=== PATIENT | female | born 1960 | race Caucasian/White ===

== ENCOUNTER → 2017-05-05 09:46 | Outpatient (CLI) | payer MEDICAID, SELFPAY ==
--- NOTE | 2017-05-05 09:55 | XR_ITS ---
XR chest 2V HISTORY: Chest pain ORDERING PHYSICIAN: Zaki Winslow PATIENT AGE: 57 years COMPARISON: 09/21/2010 FINDINGS: The cardiomediastinal silhouette and pulmonary vascularity are within normal limits. No lobar consolidation or collapse. There is a calcified granuloma in the right lower lobe.. No acute bony abnormalities. IMPRESSION: No change with no acute finding
--- NOTE | 2017-05-05 09:55 | XR_ITS ---
EXAM: XR cervical spine 5V HISTORY: Neck pain, muscle spasm ITS.REASON: CHEST PAIN,NECK PAIN,MUSCLE SPASMS IN NECK,LT SHOULDER ORDERING PHYSICIAN: Zaki Winslow PATIENT AGE: 57 years COMPARISON: None FINDINGS: Normal alignment. Mild multilevel degenerative disc disease from C3 to C6 with small posterior endplate osteophytes at C3, C4, C5 and C6. The degenerative disc disease is worse at C5-C6. Mild foraminal narrowing is present on the left at C3-C4 and C5-C6. No fracture or dislocation. No lytic or blastic change. Facet arthritic changes are present at C4-C5 and C6. IMPRESSION: Cervical spondylosis with degenerative disc disease and facet arthritic change as described above. There is foraminal narrowing on the left C5-C6 and to lesser degree at C3-C4. There are small posterior osteophytes which may lead to canal stenosis and may be better evaluated with MRI if clinically warranted
== END ==
PROVIDERS: PCP Internal Medicine; Visit Provider Internal Medicine
DX: R07.9 Chest pain, unspecified (principal); M54.2 Cervicalgia; M62.838 Other muscle spasm
CPT/HCPCS: 71046; 72050

== ENCOUNTER 2017-05-06 14:28 | Outpatient (RCR) | payer MEDICAID, SELFPAY ==
--- NOTE | 2017-05-06 16:12 | HMH.PTOPEV ---
Rehab Outpatient Evaluation Rehab OP Evaluation Start: 05/06/17 15:59 Freq: Status: Active Protocol: Document 05/06/17 16:01 LUZMAPETTY (Rec: 05/06/17 16:12 MARIAA [id number]) Electronically Signed By Devang Matthews PT 05/06/17 16:01 Outpatient Therapy Subjective History Subjective History This is the initial Physical Therapy evaluation for Kirstie Matthews. Pt is a 57 y/o female referred to PT for c/o L sided neck and periscapular pain. Pt reports insidious onset of pain ~3 months ago. Pt reports it started out as a tightness but has progressed into pain and muscle spasms w/ secondary headaches. Pt reports she tried massage therapy and had relief for a few days but eventually pain came back worse. Pt also reports that MD prescribed muscle relaxers which help but do not relieve pain entirely. Chief Complaint Pain Spasms Stiff Symptom Type Ache Throb Sharp Stabbing Shooting Symptoms Relieved By Rest/Positioning Heat Ice Prescription Meds Symptoms Aggravated By Physical Activity Twisting Sneeze/Coughing Prior Functional Limitations None Current Functional Limitations Housework Driving Sleeping Recreation Activity Symptom Description Intermittent Activity Dependent Level of pain today (0-10) 3 Pain scale - at its best (0-10) 0 Pain scale - at its worst (0-10) 9 Cervical Eval Palpation Cervical Muscles L Cervical Paraspinal L Suboccipital L SCM L CT Junction L Upper Trapezius L Thoracic Paraspinals Cervical/Thoracic Palpation Findings Tenderness Spasm
== END 2017-05-06 14:30 | disposition home or self-care (01) ==
LOC: PT 14:28
PROVIDERS: Family Provider Internal Medicine; PCP Internal Medicine; Visit Provider Internal Medicine
DX: M54.9 Dorsalgia, unspecified (principal); M62.830 Muscle spasm of back

== ENCOUNTER 2017-05-06 17:24 | Observation (INO) | payer MEDICAID, SELFPAY ==
[2017-05-06 17:25] VITALS: BP 100/68; PULSE 100; RESP 22; TEMP 36.8; O2SAT 96; BMI 29.0
--- NOTE | 2017-05-06 17:41 | XR_ITS ---
XR chest 2V HISTORY: ITS.REASON: SOA ORDERING PHYSICIAN: Dilma Kenny MD PATIENT AGE: 57 years COMPARISON: 05/05/2017 FINDINGS: The cardiomediastinal silhouette and pulmonary vascularity are within normal limits. Calcified granuloma right lower lobe The lungs are clear without infiltrates, suspicious nodules, or pleural effusions. No acute bony abnormalities. IMPRESSION: No change with no acute finding
[2017-05-06 17:55] VITALS: PULSE 97; PULSE 98
[2017-05-06 18:24] LABS: Basophils % 0.1 % (0.1-2.0); Eosinophils # 0.1 K/mm3 (0.0-0.4); Eosinophils % 0.3 % (0.1-12.0); Hematocrit 44.5 % (37.0-47.0); Hemoglobin 14.3 g/dL (12.2-16.2); Lymphocytes % 11.3 K/mm3 (10-50); Mean Corpuscular HGB Conc 32.2 g/dL (31.8-35.4); Mean Corpuscular Hemoglobin 30.1 pg (27.0-31.2); Mean Corpuscular Volume 93.2 fl (81-99); Mean Platelet Volume 8.5 fl (7.4-10.4); Monocytes # 0.8 K/mm3 (0.1-1.0); Monocytes % 4.3 % (1.7-9.3); Neutrophils # 15.1 K/mm3 (1.8-7.8); Neutrophils % 84.1 % (37.0-80.0); Platelet Count 366 K/mm3 (142-424); Red Blood Count 4.77 M/mm3 (4.20-5.40)
[2017-05-06 18:31] LABS: MANUAL DIFFERENTIAL MANUAL DIFFERENTIAL (MANUAL DIFF)
[2017-05-06 18:34] LABS: Alanine Aminotransferase 31 U/L (12-78); Albumin Level 3.9 gm/dL (3.4-5.0); Albumin/Globulin Ratio 0.8 (1.1-1.8); Alkaline Phosphatase 105 U/L (46-116); Anion Gap 19.5 mEq/L (5-15); Aspartate Amino Transferase 19 U/L (15-37); Bilirubin,Total 0.3 mg/dL (0.2-1.0); Blood Urea Nitrogen 13 mg/dL (7-18); Carbon Dioxide 22 mmol/L (21.0-32.0); Chloride 104 mmol/L (98-107); Creatinine Clearance Estimated 73 mL/min (0-300); Creatinine,Serum 1.09 mg/dL (0.55-1.02); Estimated Glomerular Filt Rate 52 ml/min (>60); GFR (African American) 63 ML/MIN (>60); Globulin 4.8 gm/dl (1.3-3.2); Glucose 168 mg/dL (74-106); Potassium 3.5 mmoL/L (3.5-5.1); Sodium 142 mmol/L (136-145); Total Protein,Serum 8.7 gm/dL (6.4-8.2)
[2017-05-06 18:38] LABS: Lactic Acid 4.5 mmol/L (0.4-2.0)
--- NOTE | 2017-05-06 18:42 | PC.NURSE ---
LAB CALLED WITH CRITICALS [facility] OF 4.5 DR MELENDEZ NOTIFIED
--- NOTE | 2017-05-06 18:55 | HMH.EDGENADL ---
ED Disposition Clinical Impression: Acute exacerbation of chronic obstructive airways disease, Generalized anxiety disorder Asthma with exacerbation Qualifiers: Asthma severity: moderate Asthma persistence: unspecified Qualified Code(s): J45.901 - Unspecified asthma with (acute) exacerbation Disposition: Admitted as Observation Condition on Discharge: Fair Referrals: Zaki Winslow [Primary Care Provider] - Shazia Reid MD [Staff Physician] - Time of Disposition: 19:17 - Critical Care Critical Care Time: No Attestation: On 05/06/17, the high probability of a clinically significant, sudden or life threatening deterioration of the following system(s) required my full and direct attention, intervention and personal management. The time I documented below is in addition to time spent performing reported procedures but includes the following listed in this critical care notation. Medical Decision Making - Medical Records Medical records reviewed: Yes: I reviewed the patient's medical records. Vital Signs: 05/06/17 17:25 05/06/17 17:55 Temperature 98.3 F Temperature Source Oral Pulse Rate 97 H Pulse Rate [Right Brachial] 100 H Respiratory Rate 22 Blood Pressure [Right Arm] 100/68 Blood Pressure Mean [Right Arm] 78 Blood Pressure Source [Right Arm] Automatic Cuff Blood Pressure Position [Right Arm] Sitting 02 Sat by Pulse Oximetry 96 Oxygen Delivery Method Room Air - Lab Data Lab results reviewed: Yes: I reviewed the patient's lab results. Lab Results 05/06/17 18:05: WBC 18.0 H, RBC 4.77, Hgb 14.3, Hct 44.5, MCV 93.2, MCH 30.1, MCHC 32.2, RDW 14.0, Plt Count 366, MPV 8.5, Neut % (Auto) 84.1 H, Lymph % (Auto) 11.3, [place] % (Auto) 4.3, Eos % (Auto) 0.3, Baso % (Auto) 0.1, Neut # (Auto) 15.1 H, Lymph # (Auto) 2.0, [place] # (Auto) 0.8, Eos # (Auto) 0.1, Baso # (Auto) 0.0 05/06/17 18:05: Sodium 142, Potassium 3.5, Chloride 104, Carbon Dioxide 22, Anion Gap 19.5 H, BUN 13, Creatinine 1.09 H, Estimated Creat Clear 73, Estimated GFR 52 L, Est GFR ( Amer) 63, Glucose 168 H, Calcium 10.0, Total Bilirubin 0.3, AST 19, ALT 31, Alkaline Phosphatase 105, Total Protein 8.7 H, Albumin 3.9, Globulin 4.8 H, Albumin/Globulin Ratio 0.8 L 05/06/17 18:05: Lactic Acid 4.5 H Result diagrams: 05/06/17 18:05 05/06/17 18:05 Orders (Tests/Meds): ED MEDICATIONS Generic Name Dose Route Start Last Admin Trade Name Freq PRN Reason Stop Dose Admin Sodium Chloride 1,000 mls @ 999 mls/hr 05/06/17 18:45 05/06/17 18:48 Sod Chloride 0.9% 1000ml Bag IV 05/06/17 19:45 999 mls/hr .Q1H1M MARLEEN Administration Discontinued Medications Generic Name Dose Route Start Last Admin Trade Name Freq PRN Reason Stop Dose Admin Albuterol/Ipratropium 3 ml 05/06/17 17:41 05/06/17 18:10 Duoneb 3ml Neb IH 05/06/17 17:42 3 ml ONCE ONE Administration Methylprednisolone Sodium Succinate 125 mg 05/06/17 17:41 05/06/17 18:10 Solu-Medrol 125mg/2ml Vial IV 05/06/17 17:42 125 mg ONCE ONE Administration ORDERS Category Date Time Status XR chest 2V Stat Exams 05/06/17 17:41 Taken Complete Blood Count Auto Diff Stat Lab 05/06/17 18:05 Results Blood Culture Stat Micro 05/06/17 18:05 Received - Radiology Data #1 Image(s): Chest Image Reviewed: Yes I reviewed the patient's radiology image No acute infiltrates seen by me but does have some air bronchograms behind the heart - Abhilash Inquiry Pt receiving controlled substance: No Abhilash was queried for this patient: No General Adult HPI - General Chief complaint: Shortness of Breath/Dyspnea Stated complaint: Asthma attack Time Seen by Provider: 05/06/17 18:50 Mode of Arrival: Ambulatory Limitations: No Limitations Description of Symptoms (Recalled from ER Triage Doc. by RN): Pt c/o soa that started this afternoon, advises it feels like she can't take a deep breath - History of Present Illness HPI narrative: This a
--- NOTE | 2017-05-06 19:07 | ED_ITS ---
ED Disposition Clinical Impression: Acute exacerbation of chronic obstructive airways disease, Generalized anxiety disorder Asthma with exacerbation Qualifiers: Asthma severity: moderate Asthma persistence: unspecified Qualified Code(s): J45.901 - Unspecified asthma with (acute) exacerbation Disposition: Admitted as Observation Condition on Discharge: Fair Referrals: Zaki Winslow [Primary Care Provider] - Shazia Reid MD [Staff Physician] - Time of Disposition: 19:17 - Critical Care Critical Care Time: No Attestation: On 05/06/17, the high probability of a clinically significant, sudden or life threatening deterioration of the following system(s) required my full and direct attention, intervention and personal management. The time I documented below is in addition to time spent performing reported procedures but includes the following listed in this critical care notation. Medical Decision Making - Medical Records Medical records reviewed: Yes: I reviewed the patient's medical records. Vital Signs: 05/06/17 17:25 05/06/17 17:55 Temperature 98.3 F Temperature Source Oral Pulse Rate 97 H Pulse Rate [Right Brachial] 100 H Respiratory Rate 22 Blood Pressure [Right Arm] 100/68 Blood Pressure Mean [Right Arm] 78 Blood Pressure Source [Right Arm] Automatic Cuff Blood Pressure Position [Right Arm] Sitting 02 Sat by Pulse Oximetry 96 Oxygen Delivery Method Room Air - Lab Data Lab results reviewed: Yes: I reviewed the patient's lab results. Lab Results 05/06/17 18:05: WBC 18.0 H, RBC 4.77, Hgb 14.3, Hct 44.5, MCV 93.2, MCH 30.1, MCHC 32.2, RDW 14.0, Plt Count 366, MPV 8.5, Neut % (Auto) 84.1 H, Lymph % (Auto ) 11.3, [place] % (Auto) 4.3, Eos % (Auto) 0.3, Baso % (Auto) 0.1, Neut # (Auto) 15.1 H, Lymph # (Auto) 2.0, [place] # (Auto) 0.8, Eos # (Auto) 0.1, Baso # (Auto) 0.0 05/06/17 18:05: Sodium 142, Potassium 3.5, Chloride 104, Carbon Dioxide 22, Anion Gap 19.5 H, BUN 13, Creatinine 1.09 H, Estimated Creat Clear 73, Estimated GFR 52 L, Est GFR ( Amer) 63, Glucose 168 H, Calcium 10.0, Total Bilirubin 0.3, AST 19, ALT 31, Alkaline Phosphatase 105, Total Protein 8.7 H, Albumin 3.9, Globulin 4.8 H, Albumin/Globulin Ratio 0.8 L 05/06/17 18:05: Lactic Acid 4.5 H Result diagrams: 05/06/17 18:05 05/06/17 18:05 Orders (Tests/Meds): ED MEDICATIONS Generic Name Dose Route Start Last Admin Trade Name Freq PRN Reason Stop Dose Admin Sodium Chloride 1,000 mls @ 999 mls/hr 05/06/17 18:45 05/06/17 18:48 Sod Chloride 0.9% 1000ml Bag IV 05/06/17 19:45 999 mls/hr .Q1H1M MARLEEN Administration Discontinued Medications Generic Name Dose Route Start Last Admin Trade Name Freq PRN Reason Stop Dose Admin Albuterol/Ipratropium 3 ml 05/06/17 17:41 05/06/17 18:10 Duoneb 3ml Neb IH 05/06/17 17:42 3 ml ONCE ONE Administration Methylprednisolone Sodium Succinate 125 mg 05/06/17 17:41 05/06/17 18:10 Solu-Medrol 125mg/2ml Vial IV 05/06/17 17:42 125 mg ONCE ONE Administration ORDERS Category Date Time Status XR chest 2V Stat Exams 05/06/17 17:41 Taken Complete Blood Count Auto Diff Stat Lab 05/06/17 18:05 Results Blood Culture Stat Micro 05/06/17 18:05 Received - Radiology Data #1
--- NOTE | 2017-05-06 19:13 | PC.NURSE ---
ON THE PHONE WITH DR. ENGLISH AT THIS TIME
[2017-05-06 19:25] VITALS: BMI 29.9
[2017-05-06 19:30] LABS: Lymphocytes % 10 % (10-50); Monocytes % 4 % (2-9); Neutrophils % 86 % (42-76); Platelet Estimate Normal; RBC Morphology Normal; Total Cells Counted 100
[2017-05-06 19:40] VITALS: BP 140/57; PULSE 84; RESP 22; TEMP 36.6; O2SAT 98
[2017-05-06 20:00] VITALS: O2SAT 98
[2017-05-06 22:19] LABS: Reflex Lactic Add Lactic Reflex
[2017-05-06 23:03] LABS: Lactic Acid Follow Up (RFLX 1) 1.1 (0.4-2.0)
[2017-05-07 04:00] VITALS: BP 133/66; PULSE 91; RESP 20; TEMP 36.6; O2SAT 96
--- NOTE | 2017-05-07 04:57 | PC.NURSE ---
Since admission pt states, Im feeling a lot better, my breathing is so much better. Pt tolerating RA well, sats remain in high 90s. Pt c/o anxiety this shift, medicated with PRN anxiety medication. Denies pain. VSS. Lung sounds diminished but clear. BS active in all 4 qauds. Pt refused teds. No acute distress noted. Will continue to monitor.
[2017-05-07 06:35] LABS: ABG Base Excess -4.2 mmol/L (-2.4-2.3); ABG Oxygen Saturation 96 % (90-100); ABG PCO2 30.4 mmhg (35.0-45.0); ABG PH 7.44 mmol/L (7.35-7.45); ABG PO2 83.6 mmhg (80-100)
[2017-05-07 06:36] LABS: Oxygen ROOM AIR %
[2017-05-07 06:37] LABS: Allen's Test ACCEPTABLE; Source Left Radial
[2017-05-07 06:57] LABS: Basophils % 0.1 % (0.1-2.0); Eosinophils # 0.1 K/mm3 (0.0-0.4); Eosinophils % 0.6 % (0.1-12.0); Hematocrit 41.4 % (37.0-47.0); Hemoglobin 13.2 g/dL (12.2-16.2); Lymphocytes # 1.8 K/mm3 (0.7-4.5); Lymphocytes % 11.5 K/mm3 (10-50); Mean Corpuscular HGB Conc 31.9 g/dL (31.8-35.4); Mean Corpuscular Volume 94.2 fl (81-99); Mean Platelet Volume 8.7 fl (7.4-10.4); Monocytes # 0.6 K/mm3 (0.1-1.0); Neutrophils % 83.8 % (37.0-80.0); Platelet Count 335 K/mm3 (142-424); Red Cell Distribution Width 13.9 % (11.5-17.5); White Blood Count 15.6 K/mm3 (4.8-10.8)
[2017-05-07 07:11] LABS: Lactic Acid 1.6 mmol/L (0.4-2.0)
[2017-05-07 07:14] LABS: Alanine Aminotransferase 28 U/L (12-78); Albumin Level 3.2 gm/dL (3.4-5.0); Albumin/Globulin Ratio 0.8 (1.1-1.8); Alkaline Phosphatase 90 U/L (46-116); Anion Gap 12.8 mEq/L (5-15); Aspartate Amino Transferase 20 U/L (15-37); Bilirubin,Total 0.2 mg/dL (0.2-1.0); Blood Urea Nitrogen 18 mg/dL (7-18); Carbon Dioxide 25 mmol/L (21.0-32.0); Chloride 108 mmol/L (98-107); Creatinine Clearance Estimated 90 mL/min (0-300); Creatinine,Serum 0.91 mg/dL (0.55-1.02); Estimated Glomerular Filt Rate 64 ml/min (>60); GFR (African American) 77 ML/MIN (>60); Globulin 4.1 gm/dl (1.3-3.2); Glucose 145 mg/dL (74-106); Potassium 3.8 mmoL/L (3.5-5.1); Sodium 142 mmol/L (136-145); Total Protein,Serum 7.3 gm/dL (6.4-8.2)
[2017-05-07 07:18] LABS: MANUAL DIFFERENTIAL MANUAL DIFFERENTIAL (MANUAL DIFF)
--- NOTE | 2017-05-07 07:28 | PC.NURSE ---
REPORT GIVEN TO Endy SHEEHAN W/C
--- NOTE | 2017-05-07 07:34 | P.CONPHA_ITS ---
[facility] Pharmacy VTE Monitoring - Patient Demographics Admission date: 05/06/17 Report Date: 05/07/17 Time: 07:33 Allergies/Adverse Reactions: Patient Allergies codeine Adverse Reaction (Mild, Verified 05/06/17 17:39) LETHARGIC/WEAK gabapentin [From Neurontin] Adverse Reaction (Mild, Verified 05/06/17 17:39) CONFUSION Height: 1.68 m Weight: 84.028 kg Patient Problems: Current Active Problems Asthma with exacerbation (Acute) Generalized anxiety disorder (Acute) Acute exacerbation of chronic obstructive airways disease (Acute) - VTE Risk Labs: VTE Related Lab Results Hgb 13.2 g/dL (12.2-16.2) 05/07/17 06:14 Hct 41.4 % (37.0-47.0) 05/07/17 06:14 Plt Count 335 K/mm3 (142-424) 05/07/17 06:14 BUN 18 mg/dL (7-18) D 05/07/17 06:14 Creatinine 0.91 mg/dL (0.55-1.02) 05/07/17 06:14 Estimated Creat Clear 90 mL/min (0-300) 05/07/17 06:14 Was VTE Risk Assessment Performed: Yes VTE Score: 4 VTE Risk Level: Low Risk Clinical Trial Participant: No - Prophylaxis VTE Prophylaxis Ordered?: Yes Types of VTE Prophylaxis: TEDS Knee High
--- NOTE | 2017-05-07 07:46 | PC.NURSE ---
report given to gifty lei rn
[2017-05-07 08:00] VITALS: BP 120/57; PULSE 71; RESP 18; TEMP 37; O2SAT 95
[2017-05-07 08:57] LABS: Lymphocytes % 10 % (10-50); Monocytes % 2 % (2-9); Neutrophils % 83 % (42-76); Platelet Estimate Normal; Total Cells Counted 100
--- NOTE | 2017-05-07 09:01 | HMH.HP ---
*Admission Date: 05/06/17 *Chief complaint: neck and chest pain with SOA *History of present illness: Ms. Matthews is a 57-year-old patient of Dr. Winslow who has been having neck and shoulder pain for quite some time. He ordered an x-ray and told her she had COPD and started her on a steroid pack. She states she felt much better until she had a disagreement with a nephew yesterday. She states all at once she could not breathe and she had pain in her chest, left shoulder, and in her neck. She presented to the emergency room where she was given a neb treatment and some steroids. She was also placed on oxygen. She felt much better after this and was weaned from the oxygen at 1 AM. This morning she states she feels fine and has no pain. Of note she did have flu 3 weeks ago. She also is a smoker. [facility] History Medical History: Reports:: Anxiety, Chronic Obstructive Pulmonary Disease (COPD), Hyperlipidemia Denies:: Cancer, Diabetes Mellitus Type 1, Diabetes Mellitus Type 2, MRSA Other Medical History: Reports: Arthritis Comment: Restless leg Other Surgeries: Yes: Colonoscopy, Hysterectomy-Total Amputation: No Fractures: No Comment: Cholecystectomy - *Social History Educational Level: Completed GED/General Educational Development Smoking Status: Current every day smoker Tobacco Type: cigarettes # Packs/Day (cigarettes): 1 #Yrs smoked (if former smoker): 30 Alcohol Intake: never Alcohol Intake Frequency:: 0-2 drinks per day Occupational Status: retired Housing: house Household Members: spouse, children - Psychiatric History Expresses thoughts of harming self/others: None Suicide Plan Description: No Plan *Family Hx:: Cancer, Diabetes, Heart Attack, Hypertension, Stroke Review of Systems - Constitutional Denies body ache(s), Denies fever(s) - Eyes Denies blurry vision, Denies double vision - ENT Denies nasal congestion, Denies sore throat - *Cardiovascular Reports chest pain, Reports shortness of breath (yesterday, resolved today) - *Respiratory Reports cough, Reports shortness of breath (yesterday but resolved today), Denies wheezing - *Gastrointestinal Reports loose stools, Denies abdominal pain, Denies nausea, Denies vomiting - *Genitourinary Denies difficulty urinating, Denies painful urination - *Musculoskeletal Reports neck pain, Denies back pain, Denies body aches - *Neurologic Reports headache(s), Denies dizziness Meds Home Medications Medication Instructions Recorded Confirmed Type Amitriptyline HCl [Elavil 25mg 25 mg PO HS 05/06/17 05/06/17 History tablet] Atorvastatin Calcium [Atorvastatin 40 mg PO DAILY 05/06/17 05/06/17 History 40mg Tab] Ibuprofen [Ibuprofen 800mg Tab] 800 mg PO Q8HP PRN 05/06/17 05/06/17 History LORazepam [Ativan 1mg tablet] 1.5 mg PO HS 05/06/17 05/06/17 History Tizanidine HCl [Zanaflex 4mg 4 mg PO BID 05/06/17 05/06/17 History tablet] Topiramate [Topiramate] 50 mg PO HS 05/06/17 05/06/17 History predniSONE [Deltasone 10mg tablet] 10 mg PO QID 05/06/17 05/06/17 History Allergies Allergy/AdvReac Type Severity Reaction Status Date / Time codeine AdvReac Mild LETHARGIC/W Verified 05/06/17 17:39 EAK gabapentin [From Neurontin] AdvReac Mild CONFUSION Verified 05/06/17 17:39 Exam Vital signs and Labs for Last 24 Hours: Temp Pulse Resp BP Pulse Ox 98.6 F 71 18 120/57 95 05/07/17 08:00 05/07/17 08:00 05/07/17 08:00 05/07/17 08:00 05/07/17 08:00 Laboratory Results - last 24 hr 05/06/17 22:30: Lactic Acid Fup @ 4Hr 1.1 05/07/17 06:14: WBC 15.6 H, RBC 4.40, Hgb 13.2, Hct 41.4, MCV 94.2, MCH 30.0, MCHC 31.9, RDW 13.9, Plt Count 335, MPV 8.7, Neut % (Auto) 83.8 H, Lymph % (Auto) 11.5, [place] % (Auto) 4.0, Eos % (Auto) 0.6, Baso % (Auto) 0.1, Neut # (Auto) 13.0 H, Lymph # (Auto) 1.8, [place] # (Auto) 0.6, Eos # (Auto) 0.1, Baso # (Auto) 0.0, Total Counted 100, Neutrophils % (Manual) 83 H, Band Neutrophils % 3.0, Lymphocytes % (Manual) 10, Atyp
--- NOTE | 2017-05-07 09:04 | P.HP_ITS ---
*Admission Date: 05/06/17 *Chief complaint: neck and chest pain with SOA *History of present illness: Ms. Matthews is a 57-year-old patient of Dr. Winslow who has been having neck and shoulder pain for quite some time. He ordered an x-ray and told her she had COPD and started her on a steroid pack. She states she felt much better until she had a disagreement with a nephew yesterday. She states all at once she could not breathe and she had pain in her chest, left shoulder, and in her neck. She presented to the emergency room where she was given a neb treatment and some steroids. She was also placed on oxygen. She felt much better after this and was weaned from the oxygen at 1 AM. This morning she states she feels fine and has no pain. Of note she did have flu 3 weeks ago. She also is a smoker. [facility] History Medical History: Reports:: Anxiety, Chronic Obstructive Pulmonary Disease (COPD) , Hyperlipidemia Denies:: Cancer, Diabetes Mellitus Type 1, Diabetes Mellitus Type 2, MRSA Other Medical History: Reports: Arthritis Comment: Restless leg Other Surgeries: Yes: Colonoscopy, Hysterectomy-Total Amputation: No Fractures: No Comment: Cholecystectomy - *Social History Educational Level: Completed GED/General Educational Development Smoking Status: Current every day smoker Tobacco Type: cigarettes # Packs/Day (cigarettes): 1 #Yrs smoked (if former smoker): 30 Alcohol Intake: never Alcohol Intake Frequency:: 0-2 drinks per day Occupational Status: retired Housing: house Household Members: spouse, children - Psychiatric History Expresses thoughts of harming self/others: None Suicide Plan Description: No Plan *Family Hx:: Cancer, Diabetes, Heart Attack, Hypertension, Stroke Review of Systems - Constitutional Denies body ache(s), Denies fever(s) - Eyes Denies blurry vision, Denies double vision - ENT Denies nasal congestion, Denies sore throat - *Cardiovascular Reports chest pain, Reports shortness of breath (yesterday, resolved today) - *Respiratory Reports cough, Reports shortness of breath (yesterday but resolved today), Denies wheezing - *Gastrointestinal Reports loose stools, Denies abdominal pain, Denies nausea, Denies vomiting - *Genitourinary Denies difficulty urinating, Denies painful urination - *Musculoskeletal Reports neck pain, Denies back pain, Denies body aches - *Neurologic Reports headache(s), Denies dizziness Meds Home Medications Medication Instructions Recorded Confirmed Type Amitriptyline HCl [Elavil 25mg 25 mg PO HS 05/06/17 05/06/17 History tablet] Atorvastatin Calcium [Atorvastatin 40 mg PO DAILY 05/06/17 05/06/17 History 40mg Tab] Ibuprofen [Ibuprofen 800mg Tab] 800 mg PO Q8HP PRN 05/06/17 05/06/17 History LORazepam [Ativan 1mg tablet] 1.5 mg PO HS 05/06/17 05/06/17 History Tizanidine HCl [Zanaflex 4mg 4 mg PO BID 05/06/17 05/06/17 History tablet] Topiramate [Topiramate] 50 mg PO HS 05/06/17 05/06/17 History predniSONE [Deltasone 10mg tablet] 10 mg PO QID 05/06/17 05/06/17 History Allergies Allergy/AdvReac Type Severity Reaction Status Date / Time codeine AdvReac Mild LETHARGIC/W Verified 05/06/17 17:39 EAK gabapentin [From Neurontin] AdvReac Mild CONFUSION Verified 05/06/17 17:39 Exam Vital signs and Labs for Last 24 Hours: Temp Pulse Resp BP Pulse Ox 98.6 F 71 18 120/57 95 05/07/17 08:00
--- NOTE | 2017-05-07 11:29 | CA_ITS ---
PROCEDURE: 2-D M-mode and color Doppler study INDICATIONS FOR THE TEST: Chest pain+ COPD+ Heart Murmur Tobacco Smoking+ Palpitations+ Fatigue+ Syncope Edema Hypertension Diabetes Mellitus Rheumatic Fever SOB ZAVALA+Obesity+Hyperlipidemia+ Family History HD+ Additional History anxiety, asthma, near syncope PATIENT INFORMATION HEIGHT: 66 WEIGHT: 185 GENDER: Female B/P: 120/57 2-D/M-MODE INTERPRETATION: 2-D MEASUREMENTS OBSERVED VALUES IN CMS Right Ventricular Dimension (RVDd) 1.7 Interventricular Septum (Thickness)(IVsd) 1.1 Left Ventricular Internal Dimensions(LVIDd) 4.3 Left Ventricular Posterior Wall (Thickness)(LVPWd) 1.1 Aortic Root 2.7 Aortic Cusp Separation 1.8 Left Atrial Dimensions (LAD) 3.4 2D 1. Left atrium is qualitatively mildly enlarged, left ventricle is normal size, there is mild concentric left ventricular hypertrophy, visually estimated ejection fraction of 55% with no obvious regional wall motion abnormality. 2. The right atrium and right ventricle are normal size and contractility. 3. The aortic valve is minimally thickened and fibrosed. 4. The mitral and tricuspid valve are grossly normal. 5. The pulmonic valve is poorly visualized. 6. No significant pericardial effusion noted. DOPPLER INTERROGATION: Doppler interrogation of the aortic, mitral and tricuspid valvular presence of mild mitral and tricuspid regurgitation, tricuspid regurgitant jet velocity insufficient for calculation of the right ventricular systolic pressure, grade 1 diastolic dysfunction seen without tissue Doppler evidence of raised left atrial pressure. CONCLUSION: 1. The left atrium, normal left ventricular size, mild qualitative concentric left ventricular hypertrophy, visually estimated ejection fraction 55% with no obvious regional wall motion abnormality. Grade 1 diastolic dysfunction seen without tissue Doppler evidence of raised left atrial pressure. 2. Mild mitral and tricuspid regurgitation 3. No significant pericardial effusion noted.
--- NOTE | 2017-05-07 11:48 | HMH.CARDCON2 ---
History of Present Illness Consult date: 05/07/17 Requesting physician: Shazia Reid Consult reason: chest pain Chief complaint: chest pain, SOA History of present illness: 57-year-old white female with history of COPD, continued tobacco use and hyperlipidemia was admitted through the emergency department for acute onset of shortness of breath during an emotional argument with a 14-year-old nephew whom she is raising. Patient also relates a 2 week history of substernal sharp chest discomfort and intermittent cramping sensation in the left shoulder and shoulder blade area. Recent workup by her family doctor, Dr. Winslow, which revealed possible pinched nerve etiology. Shortness of breath symptoms improved significantly in the emergency department with nebulizer treatment. Patient relates the chest discomfort lasts 5-10 minutes and has occurred over the last couple of weeks without activity. She denies any aggravating or alleviating symptoms. Occasional nausea and diaphoresis noted with the chest discomfort but not consistently. EKG today shows sinus rhythm with poor R-wave progression anteriorly. Patient denies any previous cardiac symptoms but does relate a remote stress test without need for further evaluation. She does continue to smoke about a pack a day and has for over 40 years. She denies medication for hypertension or diabetes. No significant family history for early coronary artery disease. There is a significant family history for cancer. Cardiology consulted for evaluation recommendations. Review of Systems - Constitutional Reports weight loss Comments: Weight loss noted since cholecystectomy last year with some chronic diarrhea. - *Cardiovascular Reports chest pain, Reports chest pain at rest, Reports shortness of breath - *Respiratory Reports shortness of breath - *Gastrointestinal Reports loose stools - *Musculoskeletal Reports muscle cramps - *Neurologic Reports headache(s), Denies dizziness [facility] History Medical History: Reports:: Anxiety, Chronic Obstructive Pulmonary Disease (COPD), Hyperlipidemia Denies:: Cancer, Diabetes Mellitus Type 1, Diabetes Mellitus Type 2, MRSA Other Medical History: Reports: Arthritis Other Surgeries: Yes: Colonoscopy, Hysterectomy-Total Amputation: No Fractures: No - *Social History Educational Level: Completed GED/General Educational Development Smoking Status: Current every day smoker Tobacco Type: cigarettes # Packs/Day (cigarettes): 1 #Yrs smoked (if former smoker): 30 Alcohol Intake: never Alcohol Intake Frequency:: 0-2 drinks per day Occupational Status: retired Housing: house Household Members: spouse, children - Psychiatric History Expresses thoughts of harming self/others: None Suicide Plan Description: No Plan Pschychiatric History:: Reports:: Anxiety *Family Hx:: Cancer, Diabetes, Heart Attack, Hypertension, Stroke Meds Home Medications Medication Instructions Recorded Confirmed Type Amitriptyline HCl [Elavil 25mg 25 mg PO HS 05/06/17 05/06/17 History tablet] Atorvastatin Calcium [Atorvastatin 40 mg PO DAILY 05/06/17 05/06/17 History 40mg Tab] Ibuprofen [Ibuprofen 800mg Tab] 800 mg PO Q8HP PRN 05/06/17 05/06/17 History LORazepam [Ativan 1mg tablet] 1.5 mg PO HS 05/06/17 05/06/17 History Tizanidine HCl [Zanaflex 4mg 4 mg PO BID 05/06/17 05/06/17 History tablet] Topiramate [Topiramate] 50 mg PO HS 05/06/17 05/06/17 History predniSONE [Deltasone 10mg tablet] 10 mg PO QID 05/06/17 05/06/17 History Allergies Allergy/AdvReac Type Severity Reaction Status Date / Time codeine AdvReac Mild LETHARGIC/W Verified 05/06/17 17:39 EAK gabapentin [From Neurontin] AdvReac Mild CONFUSION Verified 05/06/17 17:39 Exam Vital signs and Labs for Last 24 Hours: Temp Pulse Resp BP Pulse Ox 98.6 F 71 18 120/57 95 05/07/17 08:00 05/07/17 08:00 05/07/17 08:00 05/07/17 08:00 05/07/17 08:00 Laboratory Results - las
--- NOTE | 2017-05-07 11:53 | P.CONS_ITS ---
History of Present Illness Consult date: 05/07/17 Requesting physician: Shazia Reid Consult reason: chest pain Chief complaint: chest pain, SOA History of present illness: 57-year-old white female with history of COPD, continued tobacco use and hyperlipidemia was admitted through the emergency department for acute onset of shortness of breath during an emotional argument with a 14-year-old nephew whom she is raising. Patient also relates a 2 week history of substernal sharp chest discomfort and intermittent cramping sensation in the left shoulder and shoulder blade area. Recent workup by her family doctor, Dr. Winslow, which revealed possible pinched nerve etiology. Shortness of breath symptoms improved significantly in the emergency department with nebulizer treatment. Patient relates the chest discomfort lasts 5-10 minutes and has occurred over the last couple of weeks without activity. She denies any aggravating or alleviating symptoms. Occasional nausea and diaphoresis noted with the chest discomfort but not consistently. EKG today shows sinus rhythm with poor R-wave progression anteriorly. Patient denies any previous cardiac symptoms but does relate a remote stress test without need for further evaluation. She does continue to smoke about a pack a day and has for over 40 years. She denies medication for hypertension or diabetes. No significant family history for early coronary artery disease. There is a significant family history for cancer. Cardiology consulted for evaluation recommendations. Review of Systems - Constitutional Reports weight loss Comments: Weight loss noted since cholecystectomy last year with some chronic diarrhea. - *Cardiovascular Reports chest pain, Reports chest pain at rest, Reports shortness of breath - *Respiratory Reports shortness of breath - *Gastrointestinal Reports loose stools - *Musculoskeletal Reports muscle cramps - *Neurologic Reports headache(s), Denies dizziness [facility] History Medical History: Reports:: Anxiety, Chronic Obstructive Pulmonary Disease (COPD) , Hyperlipidemia Denies:: Cancer, Diabetes Mellitus Type 1, Diabetes Mellitus Type 2, MRSA Other Medical History: Reports: Arthritis Other Surgeries: Yes: Colonoscopy, Hysterectomy-Total Amputation: No Fractures: No - *Social History Educational Level: Completed GED/General Educational Development Smoking Status: Current every day smoker Tobacco Type: cigarettes # Packs/Day (cigarettes): 1 #Yrs smoked (if former smoker): 30 Alcohol Intake: never Alcohol Intake Frequency:: 0-2 drinks per day Occupational Status: retired Housing: house Household Members: spouse, children - Psychiatric History Expresses thoughts of harming self/others: None Suicide Plan Description: No Plan Pschychiatric History:: Reports:: Anxiety *Family Hx:: Cancer, Diabetes, Heart Attack, Hypertension, Stroke Meds Home Medications Medication Instructions Recorded Confirmed Type Amitriptyline HCl [Elavil 25mg 25 mg PO HS 05/06/17 05/06/17 History tablet] Atorvastatin Calcium [Atorvastatin 40 mg PO DAILY 05/06/17 05/06/17 History 40mg Tab] Ibuprofen [Ibuprofen 800mg Tab] 800 mg PO Q8HP PRN 05/06/17 05/06/17 History LORazepam [Ativan 1mg tablet] 1.5 mg PO HS 05/06/17 05/06/17 History Tizanidine HCl [Zanaflex 4mg 4 mg PO BID 05/06/17 05/06/17 History tablet] Topiramate [Topiramate] 50 mg PO HS 05/06/17 05/06/17 History predniSONE [Deltasone 10mg tablet] 10 mg PO QID 05/06/17 05/06/17 History
[2017-05-07 13:33] LABS: CKMB Relative Index 1.8 U/L (0-4.0); Creatine Kinase 347 U/L (26-192); Creatine Kinase MB 6.3 mg/ml (0.0-3.6); Troponin I < 0.02 ng/ml (0.00-0.06)
--- NOTE | 2017-05-07 13:52 | PC.NURSE ---
PT IS SITTING UP ON THE SOB WITH VISITORS IN THE ROOM AT THIS TIME, PT HAS NOT COMPLAINED OF ANY DISCOMFORT ALL SHE STATES SHE WANTS TO DO IS GO HOME, CARDIOLOGY STATED PT COULD GO HOME FROM THEIR STAND POINT. PT HAS SOME SCATTERED WHEEZES. PT HAS NOT NEEDED ANY OXYGEN T/O THE SHIFT, EATING WELL, WILL CONTINUE TO MONITOR.
[2017-05-07 16:00] VITALS: BP 152/62; PULSE 78; RESP 18; TEMP 36.1; O2SAT 97
--- NOTE | 2017-05-10 14:23 | HMH.DCSUM ---
General - General Admission date: 05/06/17 Discharge date: 05/07/17 HPI HPI: Ms. Matthews is a 57-year-old patient of Dr. Winslow who has been having neck and shoulder pain for quite some time. He ordered an x-ray and told her she had COPD and started her on a steroid pack. She states she felt much better until she had a disagreement with a nephew yesterday. She states all at once she could not breathe and she had pain in her chest, left shoulder, and in her neck. She presented to the emergency room where she was given a neb treatment and some steroids. She was also placed on oxygen. She felt much better after this and was weaned from the oxygen at 1 AM. This morning she states she feels fine and has no pain. Of note she did have flu 3 weeks ago. She also is a smoker. Objective Vital signs: Temp Pulse Resp BP Pulse Ox 97.0 F L 78 18 152/62 97 05/07/17 16:00 05/07/17 16:00 05/07/17 16:00 05/07/17 16:00 05/07/17 16:00 Narrative: - Constitutional no acute distress - *Routine HEENT Exam Head: Present: normocephalic, atraumatic Eye: Present: EOMI, PERRL ENT: Present: mucous membranes moist - *Routine Neck Exam Present: supple, full ROM - *Routine Respiratory Exam Present: CTA bilaterally - *Routine Cardiovascular Exam Present: RRR - *Routine Abdominal Exam Present: soft, normoactive bowel sounds. Absent: tenderness - *Routine Extremities Exam Absent: edema - *Routine Skin Exam Present: intact - *Routine Neurological Exam Present: alert, oriented X3 Hospital Course Hospital Course: Cardiology was consulted for evaluation of her CP. Her respiratory symptoms resolved. She was started on advair. They ordered an echo which showed a normal LVEF with no wall motion abnormalities. They felt her recent high dose NSAID use may have caused some gastritis and was the etiology of her chest pain. They recommended tylenol for pain and to avoid NSAID use. The patient expressed desire to stop smoking. Cardiology wrote a rx for Wellbutrin and nicotine patches to help with cessation. The patient was stable to be discharged home with follow up in one week with cardiology to schedule a stress test. DS: Diagnosis - Discharge Diagnosis (1) Chest pain Status: Acute (2) COPD (chronic obstructive pulmonary disease) Status: Chronic (3) Hyperlipemia Status: Chronic (4) Generalized anxiety disorder Status: Chronic Meds Home Medications Medication Instructions Recorded Confirmed Type Amitriptyline HCl [Elavil 25mg 25 mg PO HS 05/06/17 05/06/17 History tablet] Atorvastatin Calcium [Atorvastatin 40 mg PO DAILY 05/06/17 05/06/17 History 40mg Tab] Ibuprofen [Ibuprofen 800mg Tab] 800 mg PO Q8HP PRN 05/06/17 05/06/17 History LORazepam [Ativan 1mg tablet] 1.5 mg PO HS 05/06/17 05/06/17 History Tizanidine HCl [Zanaflex 4mg 4 mg PO BID 05/06/17 05/06/17 History tablet] Topiramate [Topiramate] 50 mg PO HS 05/06/17 05/06/17 History predniSONE [Deltasone 10mg tablet] 10 mg PO QID 05/06/17 05/06/17 History Allergies Allergy/AdvReac Type Severity Reaction Status Date / Time codeine AdvReac Mild LETHARGIC/W Verified 05/06/17 17:39 EAK gabapentin [From Neurontin] AdvReac Mild CONFUSION Verified 05/06/17 17:39 Discharge Plan - Patient Discharge Instructions ACTIVITY: Continue current activity DIET: continue same diet Patient Instructions: Asthma (Alternative Therapy), Generalized Anxiety Disorder, Chronic Obstructive Pulmonary Disease - Follow up Plan Follow up with: Zaki Winslow [Primary Care Provider] - Aguilar Soliman MD [Staff Physician] - Disposition: Home, Self-Custodial Medications: Home Medications Medication Instructions Recorded Confirmed Type Amitriptyline HCl [Elavil 25mg 25 mg PO HS 05/06/17 05/06/17 History tablet] Atorvastatin Calcium [Atorvastatin 40 mg PO DAILY 05/06/17 05/06/17 History 40mg Tab] Ibuprofen [
--- NOTE | 2017-05-10 14:33 | P.DS_ITS ---
General - General Admission date: 05/06/17 Discharge date: 05/07/17 HPI HPI: Ms. Matthews is a 57-year-old patient of Dr. Winslow who has been having neck and shoulder pain for quite some time. He ordered an x-ray and told her she had COPD and started her on a steroid pack. She states she felt much better until she had a disagreement with a nephew yesterday. She states all at once she could not breathe and she had pain in her chest, left shoulder, and in her neck. She presented to the emergency room where she was given a neb treatment and some steroids. She was also placed on oxygen. She felt much better after this and was weaned from the oxygen at 1 AM. This morning she states she feels fine and has no pain. Of note she did have flu 3 weeks ago. She also is a smoker. Objective Vital signs: Temp Pulse Resp BP Pulse Ox 97.0 F L 78 18 152/62 97 05/07/17 16:00 05/07/17 16:00 05/07/17 16:00 05/07/17 16:00 05/07/17 16:00 Narrative: - Constitutional no acute distress - *Routine HEENT Exam Head: Present: normocephalic, atraumatic Eye: Present: EOMI, PERRL ENT: Present: mucous membranes moist - *Routine Neck Exam Present: supple, full ROM - *Routine Respiratory Exam Present: CTA bilaterally - *Routine Cardiovascular Exam Present: RRR - *Routine Abdominal Exam Present: soft, normoactive bowel sounds. Absent: tenderness - *Routine Extremities Exam Absent: edema - *Routine Skin Exam Present: intact - *Routine Neurological Exam Present: alert, oriented X3 Hospital Course Hospital Course: Cardiology was consulted for evaluation of her CP. Her respiratory symptoms resolved. She was started on advair. They ordered an echo which showed a normal LVEF with no wall motion abnormalities. They felt her recent high dose NSAID use may have caused some gastritis and was the etiology of her chest pain. They recommended tylenol for pain and to avoid NSAID use. The patient expressed desire to stop smoking. Cardiology wrote a rx for Wellbutrin and nicotine patches to help with cessation. The patient was stable to be discharged home with follow up in one week with cardiology to schedule a stress test. DS: Diagnosis - Discharge Diagnosis (1) Chest pain Status: Acute (2) COPD (chronic obstructive pulmonary disease) Status: Chronic (3) Hyperlipemia Status: Chronic (4) Generalized anxiety disorder Status: Chronic Meds Home Medications Medication Instructions Recorded Confirmed Type Amitriptyline HCl [Elavil 25mg 25 mg PO HS 05/06/17 05/06/17 History tablet] Atorvastatin Calcium [Atorvastatin 40 mg PO DAILY 05/06/17 05/06/17 History 40mg Tab] Ibuprofen [Ibuprofen 800mg Tab] 800 mg PO Q8HP PRN 05/06/17 05/06/17 History LORazepam [Ativan 1mg tablet] 1.5 mg PO HS 05/06/17 05/06/17 History Tizanidine HCl [Zanaflex 4mg 4 mg PO BID 05/06/17 05/06/17 History tablet] Topiramate [Topiramate] 50 mg PO HS 05/06/17 05/06/17 History predniSONE [Deltasone 10mg tablet] 10 mg PO QID 05/06/17 05/06/17 History Allergies Allergy/AdvReac Type Severity Reaction Status Date / Time codeine AdvReac Mild LETHARGIC/W Verified 05/06/17 17:39 EAK gabapentin [From Neurontin] AdvReac Mild CONFUSION Verified 05/06/17 17:39 Discharge Plan - Patient Discharge Instr
== END 2017-05-07 17:30 | disposition home or self-care (01) ==
LOC: ER 19:18 → 2ND 19:24
PROVIDERS: Physician Assistant; Admitting Provider Family Medicine; Emergency Provider General Practice; Family Provider Internal Medicine; PCP Internal Medicine; Visit Provider Family Medicine
DX: R07.9 Chest pain, unspecified (principal); J45.901 Unspecified asthma with (acute) exacerbation; J44.1 Chronic obstructive pulmonary disease with (acute) exacerbation; F41.1 Generalized anxiety disorder; E78.5 Hyperlipidemia, unspecified; Z72.0 Tobacco use; Z82.3 Family history of stroke; Z82.49 Family history of ischemic heart disease and other diseases of the circulatory system
CPT/HCPCS: 71046; 80053; 82550; 82553; 82803; 83605; 84484; 85007; 85025; 87040; 93005; 93306; 96365; 99284; G0378; J1956

== ENCOUNTER → 2017-05-27 07:13 | Outpatient (CLI) | payer MEDICAID, SELFPAY ==
--- NOTE | 2017-05-27 07:17 | NM_ITS ---
History and Indications: Hyperlipidemia, chronic tobacco use, family history, chest pain, shortness of breath, palpitations and fatigue Procedure: Patient received a 0.4 mg of Lexiscan, resting heart rate was 80 bpm, resting blood pressure 117/68, with Lexiscan maximum heart rate achieved was 105 beats per minute, which is less than 85% of the maximum predicted heart rate, and the blood pressure was 117/61, scan patient complained of shortness of breath and stomach discomfort. Electrocardiogram: Resting electrocardiogram showed sinus rhythm, with Lexiscan there is less than 1.[address] segment depression noted from the baseline EKG. The EKG portion of the Lexiscan Myoview is nondiagnostic. Cardiac stress and resting SPECT images: Cardiac stress and resting SPECT images were obtained using technetium 99 Myoview 10.6 mCi at rest and 32.8 mCi at stress, gated SPECT further analysis of segmental wall motion and calculation of the ejection fraction also done. Cardiac stress and rest SPECT images show a mild fixed defect anteroseptally with normal contractility in the gated SPECT is likely secondary to soft tissue attenuation, no reversible ischemia seen. Computer derived ejection fraction is 69% with no obvious regional wall motion abnormality, right ventricle is normal size and contractility. Conclusion: 1. The EKG portion of the Lexiscan Myoview is nondiagnostic. 2. No obvious scintigraphic evidence of reversible ischemia seen, computer derived ejection fraction is 69% with no obvious regional wall motion abnormality, right ventricle is normal size and contractility.
--- NOTE | 2017-05-27 11:53 | HMH.ITSHM ---
metformin, lisinopril, hctz, simvastatin, asa, meloxicam, amlodipine
--- NOTE | 2017-05-27 15:11 | CT_ITS ---
CT heart w calcium score CLINICAL INDICATION: ITS.REASON: CHEST PAIN, SMOKER, CAD ORDERING PHYSICIAN: Aguilar Soliman MD PATIENT AGE: 57 years COMPARISON: None FINDINGS: The coronary artery calcium score is 14 indicating minimal plaque burden and low cardiovascular disease risk. IMPRESSION: The coronary artery calcium score is 14 indicating minimal plaque burden and low cardiovascular disease risk
== END ==
PROVIDERS: Family Provider Internal Medicine; PCP Internal Medicine; Visit Provider Internal Medicine
DX: F41.1 Generalized anxiety disorder (principal); J44.1 Chronic obstructive pulmonary disease with (acute) exacerbation; J45.901 Unspecified asthma with (acute) exacerbation; J44.9 Chronic obstructive pulmonary disease, unspecified; R07.89 Other chest pain; E78.4 Other hyperlipidemia
CPT/HCPCS: 75571; 78452; 93017; A9502; J2785

== ENCOUNTER 2018-03-27 21:21 | Observation (INO) ==
--- NOTE | 2018-03-27 21:36 | Emergency Department Note ---
ED Disposition Clinical Impression: UGIB (upper gastrointestinal bleed), Obesity (BMI 30.0-34.9) Abdominal pain Qualifiers: Abdominal location: right upper quadrant Qualified Code(s): R10.11 - Right upper quadrant pain UTI (urinary tract infection) Qualifiers: Urinary tract infection type: site unspecified Hematuria presence: without hematuria Qualified Code(s): N39.0 - Urinary tract infection, site not specified Disposition: Admitted as Observation Condition on Discharge: Good Instructions: DI for Acute Abdomen Referrals: Zaki Winslow [Primary Care Provider] - - Critical Care Critical Care Time: No Attestation: On 03/27/18, the high probability of a clinically significant, sudden or life threatening deterioration of the following system(s) required my full and direct attention, intervention and personal management. The time I documented below is in addition to time spent performing reported procedures but includes the following listed in this critical care notation. Medical Decision Making - Medical Records Medical records reviewed: Yes: I reviewed the patient's medical records. - Abhilash Inquiry Pt receiving controlled substance: No Vital Signs: 03/27/18 21:21 Temperature 98.4 F Temperature Source Oral Pulse Rate [Right Brachial] 90 Respiratory Rate 15 Blood Pressure [Right Arm] 162/86 H Blood Pressure Mean [Right Arm] 111 02 Sat by Pulse Oximetry 98 Oxygen Delivery Method Room Air - Lab Data Lab results reviewed: Yes: I reviewed the patient's lab results. Lab Results 03/27/18 21:27: Urine Color Yellow, Urine Appearance Clear, Urine pH 6.0, Ur S pecific [place] 1.020, Urine Protein Negative, Urine Glucose (UA) Negative, Urine Ketones Negative, Urine Blood Negative, Urine Nitrate Negative, Urine Bilirubin Negative, Urine Urobilinogen 0.2, Ur Leukocyte Esterase Trace, Urine WBC 10-20, Ur Squamous Epith Cells 20-50, Urine Mucus 4+ 03/27/18 21:45: WBC 11.7 H, RBC 4.62, Hgb 13.6, Hct 43.1, MCV 93.3, MCH 29.5, MCHC 31.7 L, RDW 14.1, Plt Count 285, MPV 8.5, Neut % (Auto) 57.7, Lymph % (Auto) 32.6, [place] % (Auto) 6.3, Eos % (Auto) 2.2, Baso % (Auto) 1.1, Neut # (Auto) 6.7, Lymph # (Auto) 3.8, [place] # (Auto) 0.7, Eos # (Auto) 0.3, Baso # (Auto) 0.1 03/27/18 21:45: Sodium 142, Potassium 3.4 L, Chloride 108 H, Carbon Dioxide 23, Anion Gap 14.4, BUN 7, Creatinine 1.06 H, Estimated Creat Clear 79, Estimated GFR 53 L, Est GFR ( Amer) 64, Glucose 135 H, Calcium 9.0, Total Bilirubin 0.3, AST 11 L, ALT 22, Alkaline Phosphatase 104, Total Protein 7.5, Albumin 3.4, Globulin 4.1 H, Albumin/Globulin Ratio 0.8 L, Amylase 59, Lipase 225 03/27/18 21:45: Lactate 1.3 03/27/18 21:45: C-Reactive Protein 0.7 Result diagrams: 03/27/18 21:45 03/27/18 21:45 Orders (Tests/Meds): ED MEDICATIONS Generic Name Dose Route Start Last Admin Trade Name Freq PRN Reason Stop Dose Admin Sodium Chloride 1,000 mls @ 999 mls/hr 03/27/18 21:45 03/27/18 21:41 Sod Chlor 0.9% 1000ml Bag IV 03/27/18 22:45 999 mls/hr .[id number] MARLEEN Administration Discontinued Medications Generic Name Dose Route Start Last Admin Trade Name Freq PRN Reason Stop Dose Admin Ketorolac Tromethamine 30 mg 03/27/18 21:38 03/27/18 21:41 Toradol 30mg/Ml Vial IV 03/27/18 21:39 30 mg ONCE ONE Administration Ondansetron HCl 4 mg 03/27/18 21:38 03/27/18 21:41 Zofran 4mg/2ml Vial IV 03/27/18 21:39 4 mg ONCE ONE Administration ORDERS Category Date Time Status CT abdomen pelvis wo con Stat Cat Scan 03/27/18 21:38 Taken XR chest 2V Stat Exams 03/27/18 21:38 Taken ESR [Erythrocyte Sedimentation Rate] Stat Lab 03/27/18 21:45 Received Urinalysis and Microscopic Stat Lab 03/27/18 21:27 Ordered Urine Culture Stat Micro 03/27/18 21:27 Received - Radiology Data #1 Image(s): Chest Image Reviewed: Yes I reviewed the patient's radiology image Preliminary Findings: Normal/NAD - CT Data CT Scan: Abdomen, Pelvis Time Received: 23:[address] Reviewed: Yes: I have viewed the radiologist's interpretation Preliminary Findings: Abnormal (see report) - Physician Consults Physician Consulted: tamiko Reason -: Admission Nausea/Vomiting/Diarrhea HPI - General Chief complaint: Abdominal Pain Stated complaint: back and abd pain Time Seen by Provider: 03/27/18 21:36 Mode of Arrival: Ambulatory Source of Information: Patient, Spouse, Medical Record Limitations: No Limitations Description of Symptoms (Recalled from ER Triage Doc. by RN): Pt here because she thinks she has a kidney stone, wants to get that checked out. Reports right sided flank pain, that started on Wednesday, had blood work at PCP's office, and reports that they were supposed to do an ultrasound but it hasn't been scheduled yet. Reports earlier tonight she vomited blood, and now she reports stabbing ride sided pain. - History of Present Illness HPI Narrative: pt with rt upper abd and rt flank pain over the last 2 weeks worse tonight assoc with episode of vomiting with hematemesis-no reported melena and no known ulcer disease but has hx of gerd MD complaint: nausea, vomiting, abdominal pain Onset (ago): day(s) Associated Abdominal Pain: Yes Location of pain: RUQ, flank Severity: moderate Associated symptoms: nausea/vomiting - Related Data Home Medications Medication Instructions Recorded Confirmed Amitriptyline HCl [Elavil 25mg 25 mg PO HS 05/06/17 03/27/18 tablet] Atorvastatin Calcium [Atorvastatin 40 mg PO DAILY 05/06/17 03/27/18 40mg Tab] LORazepam [Ativan 1mg tablet] 1.5 mg PO HS 05/06/17 03/27/18 Topiramate 50 mg PO HS 05/06/17 03/27/18 ranitidine 150 mg tablet 300 mg PO QHS 05/13/17 03/27/18 Aspirin [Low Dose Aspirin EC] 81 mg PO DAILY 03/27/18 03/27/18 Black Cohosh 540 mg PO BID 03/27/18 03/27/18 Dexlansoprazole [Dexilant] 30 mg PO DAILY 03/27/18 03/27/18 Tizanidine HCl [Zanaflex 4mg 4 mg PO HS 03/27/18 03/27/18 tablet] Allergies Allergy/AdvReac Type Severity Reaction Status Date / Time codeine AdvReac Mild LETHARGIC/W Verified 06/02/17 14:23 EAK gabapentin [From Neurontin] AdvReac Mild CONFUSION Verified 06/02/17 14:23 [facility] History - Hepatitis A Screen Drug use history?: No High risk sexual behaviors?: No History of sexually transmitted infection?: No Currently employed?: No Childcare worker?: No Do you have indoor plumbing?: Yes Do you have electricity?: Yes Attestation statement:: This patient has been screened for Hepatitis A risk factors. I have reviewed the patient's past medical history: Yes Medical History: Reports:: Anxiety, Chronic Obstructive Pulmonary Disease (COPD), Hyperlipidemia Denies:: Cancer, Diabetes Mellitus Type 1, Diabetes Mellitus Type 2, MRSA Other Medical History: Reports: Arthritis Comment: Restless leg Other Surgeries: Yes: Colonoscopy, Hysterectomy-Total Amputation: No Fractures: No Comment: Cholecystectomy - Social History Smoking Status: Current every day smoker Tobacco Type: cigarettes # Packs/Day (cigarettes): 1 #Yrs smoked (if former smoker): 30 Alcohol Intake: never Alcohol Intake Frequency:: 0-2 drinks per day Occupational Status: retired Housing: house Household Members: spouse, children - Psychiatric History Expresses thoughts of harming self/others: None Suicide Plan Description: No Plan Pschychiatric History:: Reports:: Anxiety Family Hx:: Cancer, Diabetes, Heart Attack, Hypertension, Stroke ROS Obtained: Yes All systems reviewed & no additional complaints - Constitutional Constitutional: Denies fever(s) - Eyes Eyes: Denies change in vision - ENT Ears, Nose, Mouth, and Throat: Denies sore throat - Cardiovascular Cardiovascular: Denies chest pain - Respiratory Respiratory: No cough - Gastrointestinal Gastrointestingal: Reports: as per HPI, abdominal pain, vomiting blood, nausea, vomiting. Denies: black, tarry stools - Genitourinary Female Genitourinary: Reports flank pain, Denies hematuria - Musculoskeletal Musculoskeletal: Denies joint pain, Denies joint swelling - Integumentary/Breasts Skin/Breast: Denies rash - Neurologic Neurologic: Denies headache(s), Denies seizure-like activity Physical Exam - General General appearance: alert - Head Head exam: normocephalic - Eye Eye exam: Present: PERRL, EOMI - ENT ENT exam: Present: mucous membranes dry - Neck Neck exam: Present: trachea midline - Respiratory Respiratory exam: Absent: respiratory distress - Cardiovascular Cardiovascular exam: Present: regular rate, systolic murmur - Abdominal Exam Abdominal exam: Present: soft, tenderness Abdominal tenderness: Present: RUQ, moderate - Extremities Exam Extremities exam: Present: full ROM - Back Exam Back exam: Absent: CVA tenderness (R) - Neurological Exam Neurological exam: Present: alert, oriented X3, CN II-XII intact - Psychiatric Psychiatric exam: Present: normal affect - Skin Skin exam: Absent: rash
[2018-03-27 21:45] LABS: Microscopic, Urine URINE MICROSCOPIC (MICROSCOPIC)
[2018-03-27 21:47] LABS: Appearance,Urine CLEAR (Clear); Bilirubin,Urine Negative (Negative); Blood, Urine Negative (Negative); Color,Urine YELLOW (Yellow); Glucose,Urine (UA) Negative (Negative); Ketones,Urine Negative (Negative); Leukocyte Esterase,Urine TRACE (Negative); Protein,Urine Negative (Negative); Urobilinogen,Urine 0.2 EU/dl (0.2)
[2018-03-27 21:52] LABS: Mucus,Urine 4+ /lpf; Squamous Epithelial Cell,Urine 20-50 #/hpf (0-5)
[2018-03-27 21:57] LABS: Basophils # 0.1 K/mm3 (0-0.2); Basophils % 1.1 % (0.1-2.0); Eosinophils # 0.3 K/mm3 (0.0-0.4); Eosinophils % 2.2 % (0.1-12.0); Hematocrit 43.1 % (37.0-47.0); Hemoglobin 13.6 g/dL (12.2-16.2); Lymphocytes # 3.8 K/mm3 (0.7-4.5); Lymphocytes % 32.6 % (10-50); Mean Corpuscular HGB Conc 31.7 g/dL (31.8-35.4); Mean Corpuscular Hemoglobin 29.5 pg (27.0-31.2); Mean Corpuscular Volume 93.3 fl (81-99); Mean Platelet Volume 8.5 fl (7.4-10.4); Monocytes # 0.7 K/mm3 (0.1-1.0); Monocytes % 6.3 % (1.7-9.3); Neutrophils # 6.7 K/mm3 (1.8-7.8); Neutrophils % 57.7 % (37.0-80.0); Platelet Count 285 K/mm3 (142-424); Red Blood Count 4.62 M/mm3 (4.20-5.40); Red Cell Distribution Width 14.1 % (11.5-17.5); White Blood Count 11.7 K/mm3 (4.8-10.8)
[2018-03-27 22:20] LABS: Albumin Level 3.4 gm/dL (3.4-5.0); Albumin/Globulin Ratio 0.8 (1.1-1.8); Anion Gap 14.4 mEq/L (5-15); Bilirubin,Total 0.3 mg/dL (0.2-1.0); Globulin 4.1 gm/dl (1.3-3.2); Potassium 3.4 mmoL/L (3.5-5.1); Total Protein,Serum 7.5 gm/dL (6.4-8.2)
[2018-03-28 06:04] LABS: Basophils # 0.1 K/mm3 (0-0.2); Basophils % 1.5 % (0.1-2.0); Eosinophils # 0.1 K/mm3 (0.0-0.4); Eosinophils % 1.4 % (0.1-12.0); Hematocrit 43.8 % (37.0-47.0); Hemoglobin 13.3 g/dL (12.2-16.2); Mean Corpuscular HGB Conc 30.3 g/dL (31.8-35.4); Mean Corpuscular Hemoglobin 29.4 pg (27.0-31.2); Mean Platelet Volume 8.3 fl (7.4-10.4); Monocytes # 0.7 K/mm3 (0.1-1.0); Monocytes % 7.4 % (1.7-9.3); Neutrophils # 5.2 K/mm3 (1.8-7.8); Neutrophils % 56.6 % (37.0-80.0); Platelet Count 258 K/mm3 (142-424); Red Blood Count 4.52 M/mm3 (4.20-5.40); Red Cell Distribution Width 14.1 % (11.5-17.5); White Blood Count 9.1 K/mm3 (4.8-10.8)
[2018-03-28 06:06] LABS: Anion Gap 10.5 mEq/L (5-15); Calcium 8.5 mg/dL (8.5-10.1); Potassium 3.5 mmoL/L (3.5-5.1)
--- NOTE | 2018-03-28 07:20 | Pharmacy Consult Notes ---
[facility] Pharmacy VTE Monitoring - Patient Demographics Admission date: 03/27/18 Report Date: 03/28/18 Time: 07:20 Allergies/Adverse Reactions: Patient Allergies codeine Adverse Reaction (Mild, Verified 06/02/17 14:23) LETHARGIC/WEAK gabapentin [From Neurontin] Adverse Reaction (Mild, Verified 06/02/17 14:23) CONFUSION Height: 1.68 m Weight: 84.907 kg Patient Problems: Current Active Problems Abdominal pain (Acute) UGIB (upper gastrointestinal bleed) (Acute) UTI (urinary tract infection) (Acute) Obesity (BMI 30.0-34.9) (Acute) - VTE Risk Labs: VTE Related Lab Results Hgb 13.3 g/dL (12.2-16.2) 03/28/18 05:30 Hct 43.8 % (37.0-47.0) 03/28/18 05:30 Plt Count 258 K/mm3 (142-424) 03/28/18 05:30 BUN 6 mg/dL (7-18) L 03/28/18 05:30 Creatinine 0.91 mg/dL (0.55-1.02) 03/28/18 05:30 Estimated Creat Clear 90 mL/min (50-200) 03/28/18 05:30 Was VTE Risk Assessment Performed: Yes VTE Score: 4 VTE Risk Level: Low Risk - Prophylaxis VTE Prophylaxis Ordered?: Yes Types of VTE Prophylaxis: TEDS Knee High Location of Applied Device: Bilateral Lower Extremeties - VTE Diagnosis Confirmed Treatment or plan recommended: Continue Current Treatment
--- NOTE | 2018-03-28 08:18 | History & Physical Report ---
*Admission Date: 03/27/18 *Chief complaint: Right flank pain/right upper quadrant pain *History of present illness: 58-year-old white female status post cholecystectomy 2-[address] Hale, who over the past couple of weeks has had increasing pain associated with food intake, belching and located in the right upper quadrant. She saw her primary physician, Dr. Winslow in the office on Wednesday who ordered labs and an ultrasound but this had not yet been done when the patient reported to the emergency department late yesterday evening because of severe pain and recurrent vomiting. She reports several episodes of vomiting food products that resulted in some scant hemoptysis near the end of the vomiting episode. She was brought to the emergency room by her family who was concerned about the blood in the emesis. In the ER laboratory studies were essentially normal, CT scan of the abdomen and pelvis was done-report is unavailable and patient was given Toradol and admitted to the hospital for IV fluids and placed on ceftriaxone from the emergency department. This morning she feels somewhat better although notes that Zofran seems to make her "sicker." She still complains of the pain in the same location. [facility] History I have reviewed the patient's past medical history: Yes Medical History: Reports:: Anxiety, Chronic Obstructive Pulmonary Disease (COPD), Hyperlipidemia Denies:: Cancer, Diabetes Mellitus Type 1, Diabetes Mellitus Type 2, MRSA Other Medical History: Reports: Arthritis Other Surgeries: Yes: Cholecystectomy, Colonoscopy, Hysterectomy-Total Amputation: No Fractures: No - *Social History Educational Level: Completed High School Smoking Status: Current every day smoker Tobacco Type: cigarettes # Packs/Day (cigarettes): 1 #Yrs smoked (if former smoker): 30 Alcohol Intake: never Alcohol Intake Frequency:: 0-2 drinks per day Occupational Status: retired Housing: house Household Members: spouse, children - Psychiatric History Expresses thoughts of harming self/others: None Suicide Plan Description: No Plan Pschychiatric History:: Reports:: Anxiety *Family Hx:: Cancer, Diabetes, Heart Attack, Hypertension, Stroke Review of Systems - Review of Systems Review of systems:: pertinent systems reviewed and negative unless documented below - Constitutional Denies anorexia, Denies body ache(s), Denies fever(s) - Eyes Denies blind spots, Denies blurry vision - ENT Denies abnormal hearing, Denies change in voice, Denies dental pain - *Cardiovascular Denies chest pain, Denies excessive sweating, Denies shortness of breath, Denies irregular heart rhythm, Denies leg swelling - *Respiratory Denies change in phlegm color, Denies chest congestion, Denies cough, Denies shortness of breath - *Gastrointestinal Reports abdominal pain, Reports belching, Reports loose stools (Since cholecystectomy), Reports vomiting blood, Reports nausea, Denies change in bowel habits, Denies change in stools, Denies coffee ground vomit, Denies constipation, Denies cramping, Denies difficulty swallowing, Denies excessive passing of gas, Denies incontinent of stools, Denies bright, red blood in stools, Denies black, tarry stools - *Neurologic Denies headache(s), Denies seizure-like activity Meds Home Medications Medication Instructions Recorded Confirmed Type Amitriptyline HCl [Elavil 25mg 25 mg PO HS 05/06/17 03/28/18 History tablet] Atorvastatin Calcium [Atorvastatin 40 mg PO DAILY 05/06/17 03/28/18 History 40mg Tab] LORazepam [Ativan 1mg tablet] 1 mg PO HS 05/06/17 03/28/18 History Topiramate 50 mg PO HS 05/06/17 03/28/18 History Aspirin [Low Dose Aspirin EC] 81 mg PO DAILY 03/27/18 03/28/18 History Black Cohosh 200 mg PO BID 03/27/18 03/28/18 History Dexlansoprazole [Dexilant] 60 mg PO DAILY 03/27/18 03/28/18 History Tizanidine HCl [Zanaflex 4mg 4 mg PO Q8HP PRN 03/27/18 03/28/18 History tablet] Allergies Allergy/AdvReac Type Severity Reaction Status Date / Time codeine AdvReac Mild LETHARGIC/W Verified 06/02/17 14:23 EAK gabapentin [From Neurontin] AdvReac Mild CONFUSION Verified 06/02/17 14:23 Exam Vital signs and Labs for Last 24 Hours: Temp Pulse Resp BP Pulse Ox 97.8 F 70 18 128/79 98 03/28/18 07:39 03/28/18 07:39 03/28/18 07:39 03/28/18 07:39 03/28/18 07:39 Laboratory Results - last 24 hr 03/27/18 21:27: Urine Color Yellow, Urine Appearance Clear, Urine pH 6.0, Ur Specific [place] 1.020, Urine Protein Negative, Urine Glucose (UA) Negative, Urine Ketones Negative, Urine Blood Negative, Urine Nitrate Negative, Urine Bilirubin Negative, Urine Urobilinogen 0.2, Ur Leukocyte Esterase Trace, Urine WBC 10-20, Ur Squamous Epith Cells 20-50, Urine Mucus 4+ 03/27/18 21:45: WBC 11.7 H, RBC 4.62, Hgb 13.6, Hct 43.1, MCV 93.3, MCH 29.5, MCHC 31.7 L, RDW 14.1, Plt Count 285, MPV 8.5, Neut % (Auto) 57.7, Lymph % (Auto) 32.6, [place] % (Auto) 6.3, Eos % (Auto) 2.2, Baso % (Auto) 1.1, Neut # (Auto) 6.7, Lymph # (Auto) 3.8, [place] # (Auto) 0.7, Eos # (Auto) 0.3, Baso # (Auto) 0.1 03/27/18 21:45: Sodium 142, Potassium 3.4 L, Chloride 108 H, Carbon Dioxide 23, Anion Gap 14.4, BUN 7, Creatinine 1.06 H, Estimated Creat Clear 79, Estimated GFR 53 L, Est GFR ( Amer) 64, Glucose 135 H, Calcium 9.0, Total Bilirubin 0.3, AST 11 L, ALT 22, Alkaline Phosphatase 104, Total Protein 7.5, Albumin 3.4, Globulin 4.1 H, Albumin/Globulin Ratio 0.8 L, Amylase 59, Lipase 225 03/27/18 21:45: Lactate 1.3 03/27/18 21:45: ESR 27 03/27/18 21:45: C-Reactive Protein 0.7 03/28/18 05:30: WBC 9.1, RBC 4.52, Hgb 13.3, Hct 43.8, MCV 97.0, MCH 29.4, MCHC 30.3 L, RDW 14.1, Plt Count 258, MPV 8.3, Neut % (Auto) 56.6, Lymph % (Auto) 33.0, [place] % (Auto) 7.4, Eos % (Auto) 1.4, Baso % (Auto) 1.5, Neut # (Auto) 5.2, Lymph # (Auto) 3.0, [place] # (Auto) 0.7, Eos # (Auto) 0.1, Baso # (Auto) 0.1 03/28/18 05:30: Sodium 143, Potassium 3.5, Chloride 110 H, Carbon Dioxide 26, Anion Gap 10.5, BUN 6 L, Creatinine 0.91, Estimated Creat Clear 90, Estimated GFR 63, Est GFR ( Amer) 77 D, Glucose 101 D, Calcium 8.5 I & O for Last 24 hours: Intake & Output 03/25/18 03/26/18 03/27/18 03/28/18 11:59 11:59 11:59 11:59 Intake Total 1411 / 1411 Balance 1411 / 1411 Weight 187 lb 3 oz Narrative: Patient is talkative, pleasant. That she really would like a couple for this morning. Oropharynx clear, no JVD. Lungs have good air movement, clear posterior calixto. Heart rate regular without murmurs. Abdomen is soft but she is tender in the right flank and in the right upper quadrant with palpation. Also has right- sided CVA tenderness. Abdomen however is soft with no peritoneal signs. Distal extremities warm and well-perfused, no edema, no clubbing. Cranial nerves are intact, able to stand up and walk well. No power or sensory deficits noted. Assessment and Plan (1) Abdominal pain Current visit: Yes Status: Acute Qualifiers: Abdominal location: right upper quadrant Qualified Code(s): R10.11 - Right upper quadrant pain Category: Medical Code(s): R10.9 - Unspecified abdominal pain Wide differential diagnosis. CT scan pending. Surgical consultation for the right upper quadrant pain and the trace hemoptysis. Patient would most likely benefit from EGD. Check CT report for urinary stones although lack of blood in the urine would speak against this. (2) Obesity (BMI 30.0-34.9) Current visit: Yes Status: Acute Category: Medical Code(s): E66.9 - Obesity, unspecified Complicates all aspects of her care (3) UGIB (upper gastrointestinal bleed) Current visit: Yes Status: Acute Category: Medical Code(s): K92.2 - Gas trointestinal hemorrhage, unspecified Seems to be more consistent with esophageal irritation from vomiting but surgery consultation will be obtained.
--- NOTE | 2018-03-28 09:04 | Consult Report ---
*Admission Date: 03/27/18 *Chief complaint: Right-sided abdominal pain *History of present illness: Patient is a 58-year-old white female who is normally under the care of Dr. Zaki Winslow. She has about a 2-week history of pain in the right posterior flank area. Describes right-sided back pain with radiation around to the right flank and into the right lower abdomen. This is not necessarily exacerbated by eating. She had seen her primary care provider on Wednesday. She had blood work ordered and had an ultrasound ordered to be done as an outpatient which is scheduled for tomorrow. However, her symptoms worsened and became more severe. She had developed some vomiting with some blood tinge. She presented to the emergency department yesterday evening. She was admitted for inpatient management. Overnight the patient states that she had developed some nausea with the Zofran. Surgical consultation was obtained today. Of note, the patient underwent laparoscopic cholecystectomy in [place] [address] Hale. Review of Systems - Review of Systems Review of systems:: pertinent systems reviewed and negative unless documented below - Constitutional Reports anorexia - Eyes Denies change in vision - ENT Denies abnormal hearing - *Cardiovascular Denies chest pain - *Respiratory Denies shortness of breath - *Gastrointestinal Reports abdominal pain, Reports bloating, Reports loose stools, Reports loose stools, Denies bright, red blood in stools, Denies black, tarry stools - *Genitourinary Denies blood in urine - *Musculoskeletal Denies abnormal walking - *Neurologic Denies abnormal hearing, Denies headache(s), Denies seizure-like activity [facility] History Medical History: Reports:: Anxiety, Chronic Obstructive Pulmonary Disease (COPD), Hyperlipidemia Denies:: Cancer, Diabetes Mellitus Type 1, Diabetes Mellitus Type 2, MRSA Other Medical History: Reports: Arthritis Other Surgeries: Yes: Cholecystectomy, Colonoscopy, Hysterectomy-Total Amputation: No Fractures: No - *Social History Educational Level: Completed High School Smoking Status: Current every day smoker Tobacco Type: cigarettes # Packs/Day (cigarettes): 1 #Yrs smoked (if former smoker): 30 Alcohol Intake: never Alcohol Intake Frequency:: 0-2 drinks per day Occupational Status: retired Housing: house Household Members: spouse, children - Psychiatric History Expresses thoughts of harming self/others: None Suicide Plan Description: No Plan Pschychiatric History:: Reports:: Anxiety *Family Hx:: Cancer, Diabetes, Heart Attack, Hypertension, Stroke Meds Home Medications Medication Instructions Recorded Confirmed Type Amitriptyline HCl [Elavil 25mg 25 mg PO HS 05/06/17 03/28/18 History tablet] Atorvastatin Calcium [Atorvastatin 40 mg PO DAILY 05/06/17 03/28/18 History 40mg Tab] LORazepam [Ativan 1mg tablet] 1 mg PO HS 05/06/17 03/28/18 History Topiramate 50 mg PO HS 05/06/17 03/28/18 History Aspirin [Low Dose Aspirin EC] 81 mg PO DAILY 03/27/18 03/28/18 History Black Cohosh 200 mg PO BID 03/27/18 03/28/18 History Dexlansoprazole [Dexilant] 60 mg PO DAILY 03/27/18 03/28/18 History Tizanidine HCl [Zanaflex 4mg 4 mg PO Q8HP PRN 03/27/18 03/28/18 History tablet] Allergies Allergy/AdvReac Type Severity Reaction Status Date / Time codeine AdvReac Mild LETHARGIC/W Verified 06/02/17 14:23 EAK gabapentin [From Neurontin] AdvReac Mild CONFUSION Verified 06/02/17 14:23 Exam Vital signs and Labs for Last 24 Hours: Temp Pulse Resp BP Pulse Ox 97.8 F 70 18 128/79 98 03/28/18 07:39 03/28/18 07:39 03/28/18 07:39 03/28/18 07:39 03/28/18 07:39 Laboratory Results - last 24 hr 03/27/18 21:27: Urine Color Yellow, Urine Appearance Clear, Urine pH 6.0, Ur Specific [place] 1.020, Urine Protein Negative, Urine Glucose (UA) Negative, Urine Ketones Negative, Urine Blood Negative, Urine Nitrate Negative, Urine Bilirubin Negative, Urine Urobilinogen 0.2, Ur Leukocyte Esterase Trace, Urine WBC 10-20, Ur Squamous Epith Cells 20-50, Urine Mucus 4+ 03/27/18 21:45: WBC 11.7 H, RBC 4.62, Hgb 13.6, Hct 43.1, MCV 93.3, MCH 29.5, MCHC 31.7 L, RDW 14.1, Plt Count 285, MPV 8.5, Neut % (Auto) 57.7, Lymph % (Auto) 32.6, [place] % (Auto) 6.3, Eos % (Auto) 2.2, Baso % (Auto) 1.1, Neut # (Auto) 6.7, Lymph # (Auto) 3.8, [place] # (Auto) 0.7, Eos # (Auto) 0.3, Baso # (Auto) 0.1 03/27/18 21:45: Sodium 142, Potassium 3.4 L, Chloride 108 H, Carbon Dioxide 23, Anion Gap 14.4, BUN 7, Creatinine 1.06 H, Estimated Creat Clear 79, Estimated GFR 53 L, Est GFR ( Amer) 64, Glucose 135 H, Calcium 9.0, Total Bilirubin 0.3, AST 11 L, ALT 22, Alkaline Phosphatase 104, Total Protein 7.5, Albumin 3.4, Globulin 4.1 H, Albumin/Globulin Ratio 0.8 L, Amylase 59, Lipase 225 03/27/18 21:45: Lactate 1.3 03/27/18 21:45: ESR 27 03/27/18 21:45: C-Reactive Protein 0.7 03/28/18 05:30: WBC 9.1, RBC 4.52, Hgb 13.3, Hct 43.8, MCV 97.0, MCH 29.4, MCHC 30.3 L, RDW 14.1, Plt Count 258, MPV 8.3, Neut % (Auto) 56.6, Lymph % (Auto) 33.0, [place] % (Auto) 7.4, Eos % (Auto) 1.4, Baso % (Auto) 1.5, Neut # (Auto) 5.2, Lymph # (Auto) 3.0, [place] # (Auto) 0.7, Eos # (Auto) 0.1, Baso # (Auto) 0.1 03/28/18 05:30: Sodium 143, Potassium 3.5, Chloride 110 H, Carbon Dioxide 26, Anion Gap 10.5, BUN 6 L, Creatinine 0.91, Estimated Creat Clear 90, Estimated GFR 63, Est GFR ( Amer) 77 D, Glucose 101 D, Calcium 8.5 I & O for Last 24 hours: Intake & Output 03/25/18 03/26/18 03/27/18 03/28/18 11:59 11:59 11:59 11:59 Intake Total 1411 / 1411 Balance 1411 / 1411 Weight 187 lb 3 oz - *Routine HEENT Exam Head: Present: normocephalic Eye: Present: EOMI, PERRL ENT: Present: mucous membranes moist - *Routine Neck Exam Present: supple. Absent: lymphadenopathy - *Routine Respiratory Exam Present: CTA bilaterally - *Routine Cardiovascular Exam Present: RRR - *Routine Abdominal Exam Present: soft, normoactive bowel sounds, tenderness Comments: Patient has some abdominal tenderness in the right upper and right lower quadrant. - *Routine Extremities Exam Absent: cyanosis, clubbing, edema - *Routine Skin Exam Present: warm. Absent: rash - *Routine Neurological Exam Present: alert, oriented X3 - Detailed Eye Exam Eyelids: Left normal inspection Results - Labs 03/28/18 05:30 03/28/18 05:30 Laboratory Results - last 24 hr 03/27/18 21:27: Urine Color Yellow, Urine Appearance Clear, Urine pH 6.0, Ur Specific [place] 1.020, Urine Protein Negative, Urine Glucose (UA) Negative, Urine Ketones Negative, Urine Blood Negative, Urine Nitrate Negative, Urine Bilirubin Negative, Urine Urobilinogen 0.2, Ur Leukocyte Esterase Trace, Urine WBC 10-20, Ur Squamous Epith Cells 20-50, Urine Mucus 4+ 03/27/18 21:45: WBC 11.7 H, RBC 4.62, Hgb 13.6, Hct 43.1, MCV 93.3, MCH 29.5, MCHC 31.7 L, RDW 14.1, Plt Count 285, MPV 8.5, Neut % (Auto) 57.7, Lymph % (Auto) 32.6, [place] % (Auto) 6.3, Eos % (Auto) 2.2, Baso % (Auto) 1.1, Neut # (Auto) 6.7, Lymph # (Auto) 3.8, [place] # (Auto) 0.7, Eos # (Auto) 0.3, Baso # (Auto) 0.1 03/27/18 21:45: Sodium 142, Potassium 3.4 L, Chloride 108 H, Carbon Dioxide 23, Anion Gap 14.4, BUN 7, Creatinine 1.06 H, Estimated Creat Clear 79, Estimated GFR 53 L, Est GFR ( Amer) 64, Glucose 135 H, Calcium 9.0, Total Bilirubin 0.3, AST 11 L, ALT 22, Alkaline Phosphatase 104, Total Protein 7.5, Albumin 3.4, Globulin 4.1 H, Albumin/Globulin Ratio 0.8 L, Amylase 59, Lipase 225 03/27/18 21:45: Lactate 1.3 03/27/18 21:45: ESR 27 03/27/18 21:45: C-Reactive Protein 0.7 03/28/18 05:30: WBC 9.1, RBC 4.52, Hgb 13.3, Hct 43.8, MCV 97.0, MCH 29.4, MCHC 30.3 L, RDW 14.1, Plt Count 258, MPV 8.3, Neut % (Auto) 56.6, Lymph % (Auto) 33.0, [place] % (Auto) 7.4, Eos % (Auto) 1.4, Baso % (Auto) 1.5, Neut # (Auto) 5.2, Lymph # (Auto) 3.0, [place] # (Auto) 0.7, Eos # (Auto) 0.1, Baso # (Auto) 0.1 03/28/18 05:30: Sodium 143, Potassium 3.5, Chloride 110 H, Carbon Dioxide 26, Anion Gap 10.5, BUN 6 L, Creatinine 0.91, Estimated Creat Clear 90, Estimated GFR 63, Est GFR ( Amer) 77 D, Glucose 101 D, Calcium 8.5 Assessment and Plan (1) Abdominal pain Current visit: Yes Status: Acute Qualifiers: Abdominal location: right upper quadrant Qualified Code(s): R10.11 - Right upper quadrant pain Category: Medical Code(s): R10.9 - Unspecified abdominal pain (2) Obesity (BMI 30.0-34.9) Current visit: Yes Status: Acute Category: Medical Code(s): E66.9 - Obesity, unspecified (3) UGIB (upper gastrointestinal bleed) Current visit: Yes Status: Acute Category: Medical Code(s): K92.2 - Gastrointestinal hemorrhage, unspecified - Assessment and plan all Dx Assessment and Plan for all problems:: Unclear as to the etiology of her symptoms. Will review her radiographs. I will see if we can go ahead and obtain her ultrasound today. May need EGD as a test
--- NOTE | 2018-03-28 15:55 | Progress Note ---
[facility] Anesthesia Checklist - Patient Identification Patient Identification: Arm Band, Verbal (Name & ) - Structural Data Admitted From: Inpatient Planned Operative Procedure/s: ERCP Consent for Planned Operative Procedure(s) Verified: Yes Verified Documents: Surgical Consent, History and Physical - NPO Status Verified Time NPO: 19:30 - Chart Verification Results Verified: CBC, BMP - Additional verifications Patient : No Anesthesia Reactions: No - Airway Assessment C-Spine Mobility Assessed: Yes (neck muscle spasms) TMJ Mobility Assessed: Yes Dentition: Good Dentition - Neurological Assessment Level of Consciousness: Awake Hx Seizures: No Numbness or tingling in extremities: No - Anesthesia Plan Anesthesia Risk discussed: Yes Anesthesia Plan: Verified ASA Class: III Anesthesia Type: MAC [facility] History I have reviewed the patient's past medical history: Yes Medical History: Reports:: Anxiety, Chronic Obstructive Pulmonary Disease (COPD), Depression, Hyperlipidemia Denies:: Cancer, Diabetes Mellitus Type 1, Diabetes Mellitus Type 2, MRSA Other Medical History: Reports: Arthritis Other Surgeries: Yes: Cholecystectomy, Colonoscopy, Hysterectomy-Total Amputation: No Fractures: No - *Social History Educational Level: Completed High School Smoking Status: Current every day smoker Tobacco Type: cigarettes # Packs/Day (cigarettes): 1 #Yrs smoked (if former smoker): 30 Alcohol Intake: never Alcohol Intake Frequency:: 0-2 drinks per day Occupational Status: retired Housing: house Household Members: spouse, children - Psychiatric History Expresses thoughts of harming self/others: None Suicide Plan Description: No Plan Pschychiatric History:: Reports:: Anxiety *Family Hx:: Cancer, Diabetes, Heart Attack, Hypertension, Stroke
--- NOTE | 2018-03-28 17:24 | Procedure Note ---
[facility] Procedure Note Procedure Note:: ERCP procedure Report: Endoscopic retrograde cholangiopancreatography with biliary/needle-knife sphincterotomy Endoscopist: Luis Alberto Kenney II, MD Referring Physician: Luis Enrique Matson MD/Zaki Winslow MD. Date of Procedure: March 28, 2018 Equipment: Olympus 180 side viewing endoscope duodenoscope Sedation: MAC sedation Indication: Mrs. Matthews is a 58-year-old female with right upper quadrant abdominal pain for the last 2 weeks that radiates into the back. She describes this as "knot like". The patient feels better when she stretches out and worse when she lies on her right side. She does report bloating, gassiness, belching and bowel irregularity and she did have cholecystectomy in August 2016 according to the patient. She states that her present pain is very similar to her gallbladder. She does report diarrhea alternating with constipation. The patient's blood work revealed normal liver and pancreatic chemistries (AST 11, ALT 22, alkaline phosphatase 104, total bilirubin 0.3, amylase 59, lipase 225). The patient did have a CT scan of the abdomen and pelvis that did show possible small cystic or common bile duct stones but no biliary ductal dilation. ERCP is performed for further evaluation. Procedure: Prior to the procedure, a history and physical exam was performed, and patient's medications and allergies were reviewed. The risks, benefits and alternatives of the sedation and procedure were discussed with the patient. All questions were answered and informed consent was obtained. The patient was brought to the fluoroscopic radiology room. Patient identification and proposed procedure were verified by the physician and the nurse. The patient was placed in a swimmer's position between left lateral decubitus and prone position and the scope was passed under direct vision. Throughout the procedure, the patient's blood pressure, pulse, and oxygen saturations were monitored continuously. The ERCP was accomplished without difficulty. The patient tolerated the procedure well. Findings: The side-viewing scope was advanced directly into the upper esophagus and passed to the second portion of the duodenum. Both the common bile duct and pancreatic duct were cannulated. There was a common channel between the 2 ducts. There was an S shaped curve to the distal CBD making guidewire cannulation difficult. The cholangiogram was performed and there was no filling defect within the common bile duct or common hepatic duct. The cystic duct stump was difficult to see well and I did not see any filling defects. To try to get better biliary cannulation, a needle knife sphincterotomy was performed and there was excellent drainage of bile and contrast. The pancreatogram showed a normal 2-3 mm pancreatic duct with normal filling of the head, body and tail of the pancreas. There were no ductular ectasias. There was a normal genu and normal retrograde flow through the accessory duct. Impression: 1. Normal cholangiogram status post needle-knife sphincterotomy with filling of the CBD and common hepatic ductno filling defects identified 2. Normal pancreatogram Plan: I suspect the patient does have functional pain/hepatic flexure syndrome. There was some angulation at the hepatic flexure on fluoroscopy. I am going to recommend dietary measures and BuSpar. I would also recommend treatment with Xifaxan times 14 days to improve SIBO.
--- NOTE | 2018-03-28 23:18 | Discharge Summary ---
General - General Admission date:: 03/27/18 Discharge date: 03/29/18 HPI HPI: 58-year-old white female status post cholecystectomy 2-[address] Hale, who over the past couple of weeks has had increasing pain associated with food intake, belching and located in the right upper quadrant. She saw her primary physician, Dr. Winslow in the office on Wednesday who ordered labs and an ultrasound but this had not yet been done when the patient reported to the emergency department late yesterday evening because of severe pain and recurrent vomiting. She reports several episodes of vomiting food products that resulted in some scant hemoptysis near the end of the vomiting episode. She was brought to the emergency room by her family who was concerned about the blood in the emesis. In the ER laboratory studies were essentially normal, CT scan of the abdomen and pelvis was done-report is unavailable and patient was given Toradol and admitted to the hospital for IV fluids and placed on ceftriaxone from the emergency department. This morning she feels somewhat better although notes that Zofran seems to make her "sicker." She still complains of the pain in the same location. Hospital Course Hospital Course: Admitted to medicine for further management of her nausea and vomiting and hematemesis. Consulted surgery and GI. No clear results on initial imaging for cause for bleed. Symptoms improved with medical management. ERCP performed by GI with the following findings/plan: Impression: 1. Normal cholangiogram status post needle-knife sphincterotomy with filling of the CBD and common hepatic ductno filling defects identified 2. Normal pancreatogram Plan: suspect the patient does have functional pain/hepatic flexure syndrome. There was some angulation at the hepatic flexure on fluoroscopy. Recommend dietary measures and BuSpar along with Xifaxan times 14 days to improve SIBO. Patient tolerated regular diet. Initiated on treatment as per above. No further episodes of nausea, vomiting, hematemesis. Medically stable for discharge home with follow-up with GI and primary care. Objective Vital signs: Temp Pulse Resp BP Pulse Ox 99 F 68 20 130/90 98 03/28/18 19:15 03/28/18 19:15 03/28/18 19:15 03/28/18 19:15 03/28/18 19:15 - *Routine HEENT Exam Head: Present: normocephalic, atraumatic Eye: Present: EOMI, PERRL ENT: Present: mucous membranes moist - *Routine Neck Exam Present: supple. Absent: lymphadenopathy - *Routine Respiratory Exam Present: CTA bilaterally. Absent: wheezes, crackles - *Routine Cardiovascular Exam Present: RRR, Normal S1, Normal S2. Absent: murmur - *Routine Abdominal Exam Present: soft, normoactive bowel sounds, tenderness (In epigastric and right upper quadrant region) - *Routine Rectal Exam Patient deferred: visual exam - *Routine Exam Patient deferred: external exam - *Routine Extremities Exam Absent: cyanosis, clubbing, edema - *Routine Skin Exam Present: intact. Absent: cyanosis, erythema - *Routine Neurological Exam Present: alert, oriented X3. Absent: altered mental status Results Labs on day of discharge: Labs from last 24 hours 03/28/18 03/28/18 03/27/18 05:30 05:30 21:45 WBC 9.1 RBC 4.52 Hgb 13.3 Hct 43.8 MCV 97.0 MCH 29.4 MCHC 30.3 L RDW 14.1 Plt Count 258 MPV 8.3 Neut % (Auto) 56.6 Lymph % (Auto) 33.0 [place] % (Auto) 7.4 Eos % (Auto) 1.4 Baso % (Auto) 1.5 Neut # (Auto) 5.2 Lymph # (Auto) 3.0 [place] # (Auto) 0.7 Eos # (Auto) 0.1 Baso # (Auto) 0.1 ESR 27 Sodium 143 Potassium 3.5 Chloride 110 H Carbon Dioxide 26 Anion Gap 10.5 BUN 6 L Creatinine 0.91 Estimated Creat Clear 90 Estimated GFR 63 Est GFR ( Amer) 77 D Glucose 101 D Calcium 8.5 Preliminary micro results at discharge 03/27/18 21:27 Urine Culture - Preliminary Urine,Clean Catch NO GROWTH AFTER 24 HOURS DS: Diagnosis - Discharge Diagnosis (1) Abdominal pain Status: Acute (2) Obesity (BMI 30.0-34.9) Status: Acute (3) UGIB (upper gastrointestinal bleed) Status: Acute Discharge Plan - Patient Discharge Instructions Patient Instructions: Endoscopic Retrograde Cholangiopancreatography, Acute Abdominal Pain - Follow up Plan Follow up with: Zaki Winslow [Primary Care Provider] - 1 week Luis Alberto Kenney MD [Staff Physician] - Disposition: Home, Self-Detention Medications: Home Medications Medication Instructions Recorded Confirmed Type Amitriptyline HCl [Elavil 25mg 25 mg PO HS 05/06/17 03/28/18 History tablet] Atorvastatin Calcium [Atorvastatin 40 mg PO HS 05/06/17 03/28/18 History 40mg Tab] LORazepam [Ativan 1mg tablet] 1 mg PO BIDP PRN 05/06/17 03/28/18 History Topiramate 50 mg PO HS 05/06/17 03/28/18 History Aspirin [Low Dose Aspirin EC] 81 mg PO DAILY 03/27/18 03/28/18 History [place] 200 mg PO BID 03/27/18 03/28/18 History Dexlansoprazole [Dexilant] 60 mg PO DAILY 03/27/18 03/28/18 History Tizanidine HCl [Zanaflex 4mg 4 mg PO Q8HP PRN 03/27/18 03/28/18 History tablet] Prescriptions/Medication Reconciliation: New Buspirone HCl [Buspar 10mg tablet] 10 mg PO BID 30 Days #60 tablet Rifaximin [Xifaxan] 550 mg PO TID 14 Days #42 tablet Non Formulary [Pt's Own Medication] 1 each PO TID each Continue Topiramate 50 mg PO HS LORazepam [Ativan 1mg tablet] 1 mg PO BIDP PRN PRN Reason: Anxiety Atorvastatin Calcium [Atorvastatin 40mg Tab] 40 mg PO HS Amitriptyline HCl [Elavil 25mg tablet] 25 mg PO HS Dexlansoprazole [Dexilant] 60 mg PO DAILY Tizanidine HCl [Zanaflex 4mg tablet] 4 mg PO Q8HP PRN PRN Reason: Muscle Spasm Aspirin [Low Dose Aspirin EC] 81 mg PO DAILY [place] 200 mg PO BID
[2018-03-29 06:00] LABS: Basophils # 0.1 K/mm3 (0-0.2); Eosinophils # 0.2 K/mm3 (0.0-0.4); Hematocrit 39.9 % (37.0-47.0); Hemoglobin 12.4 g/dL (12.2-16.2); Lymphocytes # 2.9 K/mm3 (0.7-4.5); Lymphocytes % 29.3 % (10-50); Mean Corpuscular HGB Conc 31.2 g/dL (31.8-35.4); Mean Corpuscular Hemoglobin 29.3 pg (27.0-31.2); Mean Platelet Volume 8.2 fl (7.4-10.4); Monocytes # 0.6 K/mm3 (0.1-1.0); Monocytes % 5.9 % (1.7-9.3); Neutrophils # 6.1 K/mm3 (1.8-7.8); Neutrophils % 61.8 % (37.0-80.0); Platelet Count 253 K/mm3 (142-424); Red Blood Count 4.24 M/mm3 (4.20-5.40); Red Cell Distribution Width 14.1 % (11.5-17.5); White Blood Count 9.9 K/mm3 (4.8-10.8)
[2018-03-29 06:10] LABS: Albumin Level 3.1 gm/dL (3.4-5.0); Albumin/Globulin Ratio 0.8 (1.1-1.8); Bilirubin,Total 0.4 mg/dL (0.2-1.0); Calcium 8.9 mg/dL (8.5-10.1); Globulin 3.7 gm/dl (1.3-3.2); Total Protein,Serum 6.8 gm/dL (6.4-8.2)
--- NOTE | 2018-03-29 06:57 | Progress Note ---
Subjective Patient reports: feels better Narrative: Patient underwent ERCP yesterday. Feels better. Feels somewhat "sore". Hungry. Exam Vital signs and Labs for Last 24 Hours: Temp Pulse Resp BP Pulse Ox 98.8 F 72 15 129/62 98 03/29/18 03:45 03/29/18 03:45 03/29/18 03:45 03/29/18 03:45 03/29/18 03:45 Laboratory Results - last 24 hr 03/29/18 05:50: WBC 9.9, RBC 4.24, Hgb 12.4, Hct 39.9, MCV 94.0, MCH 29.3, MCHC 31.2 L, RDW 14.1, Plt Count 253, MPV 8.2, Neut % (Auto) 61.8, Lymph % (Auto) 29.3, [place] % (Auto) 5.9, Eos % (Auto) 2.0, Baso % (Auto) 1.0, Neut # (Auto) 6.1, Lymph # (Auto) 2.9, [place] # (Auto) 0.6, Eos # (Auto) 0.2, Baso # (Auto) 0.1 03/29/18 05:50: Sodium 144, Potassium 3.0 L, Chloride 109 H, Carbon Dioxide 27, Anion Gap 11.0, BUN 6 L, Creatinine 0.86, Estimated Creat Clear 96, Estimated GFR 68, Est GFR ( Amer) 82, Glucose 119 H, Calcium 8.9, Total Bilirubin 0.4, AST 38 H D, ALT 78 D, Alkaline Phosphatase 101, Total Protein 6.8, Albumin 3.1 L, Globulin 3.7 H, Albumin/Globulin Ratio 0.8 L I & O for Last 24 hours: Intake & Output 03/26/18 03/27/18 03/28/18 03/29/18 11:59 11:59 11:59 11:59 Intake Total 1411 / 1411 1895 / 1895 Balance 1411 / 1411 1895 / 1895 Weight 187 lb 3 oz 187 lb 3 oz Microbiology Reports for the Last 24 Hours: Microbiology 03/27/18 21:27 Urine,Clean Catch Urine Culture - Preliminary NO GROWTH AFTER 24 HOURS - Constitutional no acute distress - *Routine Abdominal Exam Present: soft Progress Note: A&P (1) Abdominal pain Status: Acute Current Visit: Yes (2) Obesity (BMI 30.0-34.9) Status: Acute Current Visit: Yes (3) UGIB (upper gastrointestinal bleed) Status: Acute Current Visit: Yes Assessment and Plan for All Diagnoses:: Advance diet. Discharge today.
== END 2018-03-29 11:20 | disposition home or self-care (01) ==
LOC: 2ND 21:21 → ER 21:21 → 2ND 23:35
PROVIDERS: ADMIT Family Medicine; ATTEND Internal Medicine Adolescent Medicine

== ENCOUNTER → 2018-10-10 16:32 | Outpatient (CLI) | payer OTHER, SELFPAY ==
--- NOTE | 2018-10-10 16:38 | MM_ITS ---
MM Dig screening mamm BI w/CAD CAD Screening COMPARISON: Digital mammograms with CAD 07/10/2015 INDICATION: There is no personal or family history of breast cancer. There has been a previous biopsy right breast for benign disease. TECHNIQUE: Standard CC and MLO images were obtained. R2 CAD reviewed. FINDINGS: Scattered fibroglandular densities are seen throughout both breasts. There are stable mild asymmetric fibro glandular densities left breast. There is no new or suspicious lesion in either breast and no suspicious microcalcifications. There is a tiny benign-appearing nodular density deep within the right breast only seen on the CC projection. IMPRESSION: Fibrofatty parenchyma with no suspicious lesion seen BI-RADS Category: 2 Benign Finding(s) RECOMMENDED FOLLOW-UP: 1YR - 1 YEAR FOLLOW-UP (A letter has been sent to the patient regarding results of the study.)
== END ==
PROVIDERS: PCP Internal Medicine; Referring Provider Internal Medicine; Visit Provider Internal Medicine
DX: Z12.31 Encounter for screening mammogram for malignant neoplasm of breast (principal)
CPT/HCPCS: 77067

== ENCOUNTER → 2020-05-03 14:29 | Outpatient (CLI) | payer OTHER, SELFPAY ==
[2020-05-04 10:49] LABS: Covid-19 Nasal PCR Sendout P&C NEGATIVE
== END ==
PROVIDERS: PCP Internal Medicine; Visit Provider Internal Medicine
DX: Z20.822 Contact with and (suspected) exposure to COVID-19 (principal)
CPT/HCPCS: U0004

== ENCOUNTER → 2021-04-30 18:05 | Outpatient (CLI) | payer OTHER, SELFPAY ==
[2021-04-30 20:40] LABS: Basophils # 0.2 K/mm3 (0-0.2); Basophils % 2.3 % (0.1-2.0); Eosinophils # 0.2 K/mm3 (0.0-0.4); Eosinophils % 1.9 % (0.1-12.0); Hematocrit 44.8 % (37.0-47.0); Hemoglobin 14.3 g/dL (12.2-16.2); Lymphocytes # 2.9 K/mm3 (0.7-4.5); Lymphocytes % 29.5 % (10-50); Mean Corpuscular HGB Conc 31.9 g/dL (31.8-35.4); Mean Corpuscular Hemoglobin 31.2 pg (27.0-31.2); Mean Corpuscular Volume 97.9 fl (81-99); Mean Platelet Volume 10.6 fl (7.4-10.4); Monocytes # 0.6 K/mm3 (0.1-1.0); Monocytes % 6.4 % (1.7-9.3); Neutrophils # 5.9 K/mm3 (1.8-7.8); Neutrophils % 59.9 % (37.0-80.0); Platelet Count 344 K/mm3 (142-424); Red Blood Count 4.58 M/mm3 (4.20-5.40); Red Cell Distribution Width 14.5 % (11.5-17.5); White Blood Count 9.9 K/mm3 (4.8-10.8)
[2021-04-30 20:47] LABS: Chloride 112 mmol/L (98-107); Potassium 3.9 mmoL/L (3.5-5.1); Sodium 142 mmol/L (136-145)
[2021-04-30 20:49] LABS: Alanine Aminotransferase 13 U/L (12-78); Alkaline Phosphatase 72 U/L (38-126); Anion Gap 12.9 mEq/L (5-15); Aspartate Amino Transferase 26 U/L (14-36); Bilirubin,Total 0.3 mg/dl (0.2-1.3); Blood Urea Nitrogen 12 mg/dl (7-17); Carbon Dioxide 21 mmol/L (22.0-30.0); Estimated Glomerular Filt Rate 64 ml/min (>60); GFR (African American) 77 ML/MIN (>60)
[2021-04-30 20:50] LABS: Albumin/Globulin Ratio 1.3 (1.1-1.8); Calcium 9.2 mg/dl (8.4-10.2); Chol/HDL Ratio 7.2 (1-3.5); Cholesterol 231 mg/dl (140-200); Glucose 91 mg/dl (74-100); HDL Cholesterol 32 mg/dl (40-60); Triglycerides 192 mg/dl (30-150); VLDL Cholesterol 38 mg/dL (0-40)
[2021-04-30 21:01] LABS: Direct LDL Cholesterol 163.22 mg/dL (100-129)
== END ==
PROVIDERS: Visit Provider Internal Medicine
DX: G43.901 Migraine, unspecified, not intractable, with status migrainosus (principal); M62.838 Other muscle spasm; E78.5 Hyperlipidemia, unspecified; J44.9 Chronic obstructive pulmonary disease, unspecified; F41.9 Anxiety disorder, unspecified; K21.9 Gastro-esophageal reflux disease without esophagitis
CPT/HCPCS: 80053; 80061; 83735; 85025

== ENCOUNTER → 2021-09-29 12:33 | Outpatient (CLI) | payer SELFPAY ==
[2021-09-29 14:10] LABS: Chloride 112 mmol/L (98-107); Potassium 3.8 mmoL/L (3.5-5.1); Sodium 141 mmol/L (136-145)
[2021-09-29 14:12] LABS: Alanine Aminotransferase 17 U/L (12-78); Aspartate Amino Transferase 25 U/L (14-36); Blood Urea Nitrogen 7 mg/dl (7-17); Estimated Glomerular Filt Rate 85 ml/min (>60); GFR (African American) 103 ML/MIN (>60)
[2021-09-29 14:13] LABS: Albumin Level 4.2 g/dl (3.5-5.0); Albumin/Globulin Ratio 1.3 (1.1-1.8); Alkaline Phosphatase 90 U/L (38-126); Anion Gap 12.8 mEq/L (5-15); Bilirubin,Total 0.5 mg/dl (0.2-1.3); Calcium 10.1 mg/dl (8.4-10.2); Carbon Dioxide 20 mmol/L (22.0-30.0); Chol/HDL Ratio 7.6 (1-3.5); Cholesterol 259 mg/dl (140-200); Globulin 3.2 g/dL (1.3-3.2); Glucose 114 mg/dl (74-100); HDL Cholesterol 34 mg/dl (40-60); Total Protein,Serum 7.4 g/dl (6.3-8.2); Triglycerides 180 mg/dl (30-150); VLDL Cholesterol 36 mg/dL (0-40)
[2021-09-29 14:29] LABS: Direct LDL Cholesterol 176.91 mg/dL (100-129)
== END ==
PROVIDERS: PCP Internal Medicine; Visit Provider Internal Medicine
DX: E78.5 Hyperlipidemia, unspecified (principal); K21.9 Gastro-esophageal reflux disease without esophagitis; J44.9 Chronic obstructive pulmonary disease, unspecified; F17.209 Nicotine dependence, unspecified, with unspecified nicotine-induced disorders
CPT/HCPCS: 80053; 80061

== ENCOUNTER → 2022-07-07 12:31 | Outpatient (CLI) | payer OTHER, SELFPAY ==
[2022-07-07 13:02] LABS: Basophils # 0.2 K/mm3 (0-0.2); Basophils % 1.5 % (0.1-2.0); Eosinophils # 0.6 K/mm3 (0.0-0.4); Eosinophils % 5.2 % (0.1-12.0); Hematocrit 44.5 % (37.0-47.0); Hemoglobin 14.3 g/dL (12.2-16.2); Lymphocytes # 4.1 K/mm3 (0.7-4.5); Lymphocytes % 37.2 % (10-50); Mean Corpuscular Hemoglobin 30.2 pg (27.0-31.2); Mean Corpuscular Volume 94.4 fl (81-99); Mean Platelet Volume 10.4 fl (7.4-10.4); Monocytes # 0.8 K/mm3 (0.1-1.0); Monocytes % 7.3 % (1.7-9.3); Neutrophils # 5.4 K/mm3 (1.8-7.8); Neutrophils % 48.7 % (37.0-80.0); Platelet Count 290 K/mm3 (142-424); Red Blood Count 4.72 M/mm3 (4.20-5.40); Red Cell Distribution Width 14.2 % (11.5-17.5)
[2022-07-07 13:31] LABS: Hemoglobin A1C 5.7 % (4.0-6.0)
[2022-07-07 14:30] LABS: Alanine Aminotransferase 21 U/L (12-78); Albumin Level 3.8 g/dl (3.5-5.0); Albumin/Globulin Ratio 1.4 (1.1-1.8); Alkaline Phosphatase 109 U/L (38-126); Anion Gap 10.6 mEq/L (5-15); Aspartate Amino Transferase 27 U/L (14-36); Bilirubin,Total 0.3 mg/dl (0.2-1.3); Blood Urea Nitrogen 11 mg/dl (7-17); Carbon Dioxide 23 mmol/L (22.0-30.0); Chloride 110 mmol/L (98-107); Cholesterol 146 mg/dl (140-200); Estimated Glomerular Filt Rate 63 ml/min (>60); GFR (African American) 77 ML/MIN (>60); Globulin 2.7 g/dL (1.3-3.2); Glucose 79 mg/dl (74-100); HDL Cholesterol 29 mg/dl (40-60); Potassium 3.6 mmoL/L (3.5-5.1); Sodium 140 mmol/L (136-145); Total Protein,Serum 6.5 g/dl (6.3-8.2); Triglycerides 196 mg/dl (30-150); VLDL Cholesterol 39 mg/dL (0-40)
[2022-07-07 14:41] LABS: Direct LDL Cholesterol 82.97 mg/dL (100-129)
== END ==
PROVIDERS: PCP Internal Medicine; Visit Provider Internal Medicine
DX: R73.01 Impaired fasting glucose (principal); E78.5 Hyperlipidemia, unspecified; K21.9 Gastro-esophageal reflux disease without esophagitis; J44.9 Chronic obstructive pulmonary disease, unspecified; G25.9 Extrapyramidal and movement disorder, unspecified; G43.909 Migraine, unspecified, not intractable, without status migrainosus; F41.9 Anxiety disorder, unspecified; F17.209 Nicotine dependence, unspecified, with unspecified nicotine-induced disorders
CPT/HCPCS: 80053; 80061; 83036; 85025

== ENCOUNTER → 2023-01-08 13:51 | Outpatient (CLI) | payer OTHER, SELFPAY ==
[2023-01-08 15:16] LABS: Alanine Aminotransferase 20 U/L (12-78); Albumin Level 3.7 g/dl (3.5-5.0); Albumin/Globulin Ratio 1.2 (1.1-1.8); Alkaline Phosphatase 106 U/L (38-126); Anion Gap 13.9 mEq/L (5-15); Aspartate Amino Transferase 21 U/L (14-36); Bilirubin,Total 0.3 mg/dl (0.2-1.3); Blood Urea Nitrogen 10 mg/dl (7-17); Calcium 9.3 mg/dl (8.4-10.2); Carbon Dioxide 24 mmol/L (22.0-30.0); Chloride 110 mmol/L (98-107); Cholesterol 173 mg/dl (140-200); Estimated Glomerular Filt Rate 63 ml/min (>60); GFR (African American) 77 ML/MIN (>60); Globulin 3.2 g/dL (1.3-3.2); Glucose 89 mg/dl (74-100); HDL Cholesterol 29 mg/dl (40-60); Potassium 3.9 mmoL/L (3.5-5.1); Sodium 144 mmol/L (136-145); Total Protein,Serum 6.9 g/dl (6.3-8.2); Triglycerides 145 mg/dl (30-150); VLDL Cholesterol 29 mg/dL (0-40)
[2023-01-08 15:26] LABS: Direct LDL Cholesterol 110.65 mg/dL (100-129)
== END ==
LOC: LAB.DROPOF 13:51
PROVIDERS: PCP Internal Medicine; Visit Provider Internal Medicine
DX: E78.5 Hyperlipidemia, unspecified (principal); R73.01 Impaired fasting glucose; K21.9 Gastro-esophageal reflux disease without esophagitis; J44.9 Chronic obstructive pulmonary disease, unspecified
CPT/HCPCS: 80053; 80061

== ENCOUNTER 2024-04-08 16:55 | Emergency (ER) | payer OTHER, SELFPAY ==
--- NOTE | 2024-04-08 17:26 | ED_ITS ---
Discharge Plan Disposition Patient Disposition: Home, Self-Care Condition: Good Prescriptions Prescriptions: New amoxicillin 875 mg tablet 875 mg PO Q12H Qty: 20 0RF benzonatate 100 mg capsule 100 mg PO TIDP PRN (Reason: Cough) Qty: 30 0RF methylprednisolone 4 mg Tablets,Dose Pack 4 mg PO DIRECTED 6 Days Qty: 21 0RF Rx Instructions: Take 1 pack as directed for 6 days No Action esomeprazole magnesium 40 mg capsule,delayed release(DR/EC) 40 mg PO DAILY atorvastatin 40 mg tablet 40 mg PO HS Qty: 90 1RF mirtazapine 15 mg tablet 22.5 mg PO HS Qty: 135 1RF topiramate 100 mg tablet See Rx Instructions .ROUTE .COMPLEX Qty: 60 5RF Dose Instruction: Take 1 tablet by mouth twice daily Rx Instructions: Take 1 tablet by mouth twice daily tizanidine 4 mg tablet 4 mg PO Q8HP PRN (Reason: Muscle Spasm) Qty: 30 2RF lorazepam 1 mg tablet 1.5 mg PO BIDP PRN (Reason: Anxiety) Qty: 90 2RF Referrals Follow up/Referrals: Zaki Winslow MD [Primary Care Provider] - See instructions Activity Restrictions/Add. Instructions Additional Instructions/Restrictions: Drink plenty of fluids. Take tylenol or ibuprofen for pain or fever. Take the medications as directed. Follow up with your regular doctor. GO TO THE ER FOR ANY WORSENING SYMPTOMS Don't start the oral steroids (medrol dose pack) until tomorrow since you had the shot here Clinical Impressions Clinical Impression: Otitis media, Pharyngitis Instructions Patient Instructions: Sore Throat, DI for Pharyngitis/Tonsillopharyngitis -- Adult, Dexamethasone Injection Print Language Print Language: Moroccan Discharge ED Provider: Good Wilder [facility] [place] HPI General Stated complaint: ear pain Time Seen by Provider: 04/08/24 17:25 Related Data Home Medications ?Medication ?Instructions ?Recorded ?Confirmed esomeprazole magnesium 40 mg 40 mg PO DAILY 11/01/23 11/01/23 capsule,delayed release Previous Rx's ?Medication ?Instructions ?Recorded topiramate 100 mg tablet See Rx Instructions .Route 10/30/23 .COMPLEX #60 tabs atorvastatin 40 mg tablet 40 mg PO HS Cholesterol #90 tabs 11/01/23 mirtazapine 15 mg tablet 22.5 mg (1.5 x 15 mg) PO HS #135 11/01/23 tabs tizanidine 4 mg tablet 4 mg PO Q8HP PRN Muscle Spasm #30 02/22/24 tabs lorazepam 1 mg tablet 1.5 mg (1.5 x 1 mg) PO BIDP PRN 03/28/24 Anxiety #90 tabs amoxicillin 875 mg tablet 875 mg PO Q12H #20 tabs 04/08/24 benzonatate 100 mg capsule 100 mg PO TIDP PRN Cough #30 caps 04/08/24 methylprednisolone 4 mg tablets in 4 mg PO DIRECTED 6 days #21 tabs 04/08/24 a dose pack Allergies Allergy/AdvReac Type Severity Reaction Status Date / Time codeine AdvReac Mild LETHARGIC/W Verified 11/01/23 11:50 EAK gabapentin (From Neurontin) AdvReac Mild CONFUSION Verified 11/01/23 11:50 PFSH PFSH Disclaimer: The information contained in this section may have been updated after the patient was seen, as this information can be updated by other users. Social History Smoking Status: Current every day smoker tobacco type: cigarettes packs per day: 1 second hand exposure: Yes alcohol intake: never current occupational status: retired Travel in the last 8 weeks: None household members: spouse and children housing: house current occupational exposures/hazards: No caffeine: Yes Have you lived/traveled outside US in past 30 days?: No Contact w/someone who lives/traveled outside US past 30 days?: No Exposure to someone with infectious disease in past 14 days?: No Do you have a fever (greater than 100.4 F or 38 C)?: No Have you tested positive for COVID-19: No Exposed to someone with COVID-19 in past 14 days?: No Do you have a sore throat?: No Do you have a cough?: No Do you have any weakness?: No Do you have any diarrhea?: No Are you experiencing any unusual bleeding?: No Do you have any muscle aches/pain?: No Do you have any abdominal pain?: No Are you experiencing loss of taste or smell?: No ROS Obtained: Yes All systems reviewed & no additional complaints except as documented Constitutional Constitutional: Denies chills, Reports fever(s) and Reports poor appetite Eyes Eyes: Denies eye discharge ENT Ears, Nose, Mouth, and Throat: Denies ear discharge, Reports otalgia, Denies hearing loss, Denies sinus pain and Reports sore throat Cardiovascular Cardiovascular: Denies chest pain and Denies dyspnea Respiratory Respiratory: Denies chest congestion, Reports cough and Denies dyspnea Gastrointestinal Gastrointestingal: Denies abdominal pain, diarrhea, nausea or vomiting Musculoskeletal Musculoskeletal: Denies arthralgias Integumentary/Breasts Skin/Breast: Denies rash Physical Exam General General appearance: alert and in no apparent distress Head Head exam: atraumatic, normocephalic and normal inspection Eye Eye exam: Present normal appearance; Absent PERRL or EOMI ENT ENT exam: Present mucous membranes moist and normal external ear exam Expanded ENT Exam TM/Canal exam: Bilateral TM: erythema, bulging and effusion Nose exam: Absent sinus tenderness Nasal speculum exam: Bilateral: normal Mouth exam: Present normal external inspection and other; Absent drooling Teeth exam: Present normal inspection Throat exam: Present tonsillar erythema and tonsillomegaly Neck Neck exam: Present normal inspection, full ROM and trachea midline; Absent tenderness, meningismus or lymphadenopathy Chest Chest inspection: Present normal inspection and symmetric chest wall rise; Absent tenderness Respiratory Respiratory exam: Present normal lung sounds bilaterally; Absent respiratory distress, wheezes or stridor Cardiovascular Cardiovascular exam: Present regular rate, normal rhythm and normal heart sounds; Absent tachycardia or irregular rhythm Abdominal Exam Abdominal exam: Present soft and normal bowel sounds; Absent distention, tenderness, guarding, rebound or rigidity Extremities Exam Extremities exam: Present normal inspection and normal capillary refill; Absent tenderness, joint swelling or calf tenderness Back Exam Back exam: Present normal inspection and full ROM; Absent tenderness, CVA tenderness (R) or CVA tenderness (L) Neurological Exam Neurological exam: Present alert, oriented X3, CN II-XII intact, normal gait and reflexes normal; Absent motor sensory deficit Psychiatric Psychiatric exam: Present normal affect and normal mood Skin Skin exam: Present warm, dry, intact and normal color Lymphatic Lymphatic Findings: no adenopathy Medical Decision Making Medical Records Medical records reviewed: No I reviewed the patient's medical records. Screening: Per USPSTF and CDC recommendations, given the prevalence of disease in our region, it is our hospital?s policy to screen for HIV and viral Hepatitis for all patients aged 18 and over and those with ongoing risk factors. Abhilash Inquiry Pt receiving controlled substance: No Lab Data Lab results reviewed: Yes I reviewed the patient's lab results.
[2024-04-08 17:28] VITALS: BP 153/64; PULSE 86; RESP 20; TEMP 36.7; O2SAT 99; BMI 31.3
[2024-04-08] MEDS: DEXAMETHASONE 4MG/ML 1ML VIAL 8 MG IM (18:41)
[2024-04-08 18:59] VITALS: BP 153/64; PULSE 86; RESP 18; TEMP 36.7
== END 2024-04-08 19:00 | disposition home or self-care (01) ==
PROVIDERS: Emergency Provider Nurse Practitioner Family; PCP Internal Medicine
DX: H66.93 Otitis media, unspecified, bilateral (principal); J02.9 Acute pharyngitis, unspecified
CPT/HCPCS: 96372; 99213; G0381; J1100

== ENCOUNTER 2024-10-18 06:58 | Outpatient (CLI) | payer OTHER, SELFPAY ==
--- NOTE | 2024-10-18 | CA_ITS ---
APPROVED REPORT Exam: Pharmacologic Technologist: Mar Munoz Ht: 5 ft 6 in Wt: 196 lbs BSA: 1.98 m2 Medical History Medications: atorvastatin, gabapentin, lorazepam, magnesium aspart citrate, oxide mirtazapine, tizanidine, topiramate Stress Test Details Test: Lexiscan Reason for pharmacologic stress test: physical limitation. HR Resting HR: 69 bpm Max Heart Rate (APMHR): 156 bpm Max HR Achieved: 93 bpm Target HR (85% APMHR): 133 bpm % of APMHR: 60 Recovery HR: 87 bpm BP Resting BP: 165.0/87.0 mmHg Max BP: 172.0/87.0 mmHg Recovery BP: 169.0/83.0 mmHg ECG Resting ECG: SR. No isch or ectopy. Stress ECG Conclusion Symptoms: mild nausea. Arrhythmias/Ectopy: Lexiscan. Electronically signed by : Jolanta Lopez MD 10/20/2024 18:00:00
--- NOTE | 2024-10-18 07:00 | NM_ITS ---
APPROVED REPORT Exam: Nuclear Stress Test Indication: SOB, Palpitations, High cholesterol, Tobacco use, Family history Patient Location: Outpatient Stress Tech: Mar Elkins MD Tech:Yin Davies, ARRT, RT (R)(N) Ht: 5 ft 6 in Wt: 190 lbs Bra Size: 34B HR: 69 bpm BP: 165/87 mmHg BSA: 1.96 m2 TID: 1.14 BMI: 30.6 History: SOB, Palpitations, High cholesterol, Tobacco use, Family history Procedure: Patient received 0.4 mg of intravenous Lexiscan, resting heart rate 69 bpm, resting blood pressure 165/87 mmHg, with Lexiscan maximum heart rate achieved was 94 bpm which is % of the maximum predicted heart rate and blood pressure was 172/87 mmHg. With Lexiscan, patient denied any complaint of chest pain. Cardiac Stress and Resting SPECT Images: Cardiac Stress and Resting SPECT images were obtained using technetium 99m Myoview 31.8 mCi stress and 10.54 mCi at rest. Resting and stress imaging in supine and prone positions demonstrate no evidence of fixed or reversible perfusion defects. Gated imaging demonstrates normal global and regional LV systolic function. LVEF is calculated at 66%. Conclusion: No evidence of fixed or reversible perfusion defects. Gated imaging demonstrates normal global and regional LV systolic function. LVEF is calculated at 66%. Electronically signed by : Jolanta Lopez MD 10/20/2024 17:46:21
[2024-10-18] MEDS: ISOTOPE MYOVIEW (PER STUDY) 1 DOSE IV (08:39)
[2024-10-18] MEDS: SODIUM CHLORIDE 0.9% 10ML SYR (RAD ONLY) 10 ML IV ×2 (08:39)
--- NOTE | 2024-10-18 09:00 | CA_ITS ---
APPROVED REPORT EXAM: Comprehensive 2D, Doppler, and color-flow Echocardiogram Manager Oncology: Jennifer Padilla RT(R) Ht: 5 ft 6 in Wt: 196lbs BSA: 1.98 BP: 150/88 mmHg Indications: palpitations, COPD 2D Dimensions LVEF (Jackson's) 48.40 % F: 54 - 74 LV Volume 100.80 mL F: 46 - 106 LV Volume Index 50.9 mL/m2 F: 29 - 61 LA Volume 28.00 mL LA Volume Index 14.14 mL/m2 (M/F) 16-34 EF AP4 49.10 % EF AP2 48.7 % EF BP 48.4 % GL Strain -15.0 % M-Mode Dimensions RVDd 2.41 cm (0.9-2.6) LA Diam 3.26 cm (1.9-4.0) LVDd 3.86 cm (3.5-5.7) LVDs 3.11 cm (3.5-5.7) IVSd 1.11 cm (0.6-1.1) PWd 1.02 cm (0.6-1.1) EF (Teich) 40.60% FS 19.40% EDV (Teich) 64.30 mL ESV (Teich) 38.20 mL LV Diastology E Decel Time 213 (160-240 msec) E/A Ratio 1.1 Mitral Valve MV E Max Castro. 71.0 (40-130 cm/s) MV A Velocity 65.0 (40-130 cm/s) E/A Ratio 1.10 MV PHT 62.0 ms Left Ventricle The left ventricle is normal size. The left ventricular systolic function is normal. The left ventricular ejection fraction is within the normal range. There is increased overall thickness. There is normal LV segmental wall motion. The left ventricular diastolic function is normal. LVEF is 55%. Right Ventricle The right ventricle is normal size. The right ventricular systolic function is normal. Atria Left atrium is mildly dilated. Right atrium is mildly dilated. There is indeterminate color Doppler evidence of interatrial shunt. Aortic Valve The aortic valve is mildly thickened. There is no aortic valvular stenosis. No aortic regurgitation is present. Mitral Valve The mitral valve is normal in structure. No evidence of mitral valve stenosis. Mild mitral regurgitation. Tricuspid Valve Tricuspid valve is grossly normal in structure and function. Trace tricuspid regurgitation. There is insufficient TR jet to estimate RVSP. Mild mitral Pulmonic Valve The pulmonary valve is normal in structure. Trace pulmonic regurgitation. Great Vessels The aortic root is normal in size. IVC is normal in size and collapses >50% with inspiration. Pericardium There is no pericardial effusion. Other Information Study Quality: Fair Conclusion Normal biventricular systolic function. Mild biatrial dilation. Mild MR. Electronically signed by : Jolanta Lopez MD 10/23/2024 13:02:25
== END 2024-10-18 23:59 | disposition home or self-care (01) ==
PROVIDERS: PCP Internal Medicine; Visit Provider Nurse Practitioner
DX: I34.0 Nonrheumatic mitral (valve) insufficiency (principal); I51.7 Cardiomegaly; J44.9 Chronic obstructive pulmonary disease, unspecified
CPT/HCPCS: 78452; 93016; 93017; 93018; 93306; A9502; J2785

== ENCOUNTER 2025-02-14 14:05 | Outpatient (CLI) | payer MEDICARE, SELFPAY ==
[2025-02-14 14:26] LABS: Hematocrit 43.2 % (37.0-47.0); Hemoglobin 13.8 g/dL (12.2-16.2); Immature Granulocytes % 0.5 %; Mean Corpuscular HGB Conc 31.9 g/dL (31.8-35.4); Mean Corpuscular Hemoglobin 30.5 pg (27.0-31.2); Mean Corpuscular Volume 95.4 fl (81-99); Nucleated Red Blood Cells % 0 %; Platelet Count 282 K/mm3 (142-424); Red Blood Count 4.53 M/mm3 (4.20-5.40); Red Cell Distribution Width-SD 52.1 fL; White Blood Count 10.5 K/mm3 (4.8-10.8)
--- OUTSIDE RECORDS SUMMARY | 2025-02-15 19:46 | XMS_ITS | Clinical Summary ---
[facility] [address] [place] [address] Care Team Providers Care Oyster Harvester Name Role Phone Zaki Winslow MD Primary Care Provider [phone] Family History Medical History Relation Name Comments Breast cancer Neg Hx Ovarian cancer Neg Hx Social History Tobacco Use Types Packs/Day Years Used Date Smoking Tobacco: Never Assessed Abuse Screen Answer Date Recorded Unsafe at Home or Work/School Not on file Feels Threatened by Someone? Not on file 12/2022 Does Anyone Keep You from Co ntacting Others or Doint Things Outside the Home? Not on file 01/18/2023 Physical Sign of Abuse Present Not on file 1 Housing Stability Answer Date Recorded Current Living Arrangements Not on file 12/2022 Potentially Unsafe Housing Conditions Not on sina e 01/18/2023 Family and Community Support Answer Vlad e Recorded Help with Day-to-Day Activities Not on file 01/18/2023 Lonely or Isolated Not on file 01/18/2023 Employment Answer Date Recorded Do you want help finding or keeping work or a lesley b? Not on file 01/18/2023 Disabilities Answer Date Recorded Concentrating, Remembering, or Making Decisions Difficulty Not on file 01/18/2023 Doing Errands Independently Difficulty Not on fi le 01/18/2023 Education Answer Date Recorded Help with school or training? Not on file Preferred Language Not on file 01/18/2023 Comments No Sex and Gender Information Value Date Recorded Sex Assigned at Not on file Legal Sex Female 12:36 PM EDT Gender Identity Not on file Sexual Orientation Not on file Plan of Treatment Health Maintenance Due Date Last Done Comments ANNUAL PHYSICAL 1960 Annual Gynecologic Pelvic an d Breast Exam 1960 HEPATITIS C SCREENING 1960 COLOGUARD 02/26/2005 COLON CANCER SCREENING 5 YEA R SIGMOIDOSCOPY 02/26/2005 COLONOSCOPY 02/26/2005 COLORECTAL CANCER SCREENING 02/26/2005 CT COLONOGRAPHY 02/26/2005 FECAL OCCULT BLOOD TEST 02/26/2005 FIT Testing (1 year) 02/26/2005 TDAP/TD VACCINES (2 - Tdap) 06/14/2006 06/14/1996 ZOSTER VACCINE (1 of 2) 02/26/2010 Pneumococcal Vaccine 50+ (2 of 2 - PCV) 03/29/2019 03/29/2018 MAMMOGRAM 08/04/2024 08/04/2022, 07/12, 07/30/2022 INFLUENZA VACCINE 11/10/2024 12/18/2020, , 03/29/2018 Procedures Procedure Name Priority Date/Time Associated Diagnosis Comments MAMMO DIAGNOSTIC DIGITAL TOMOSYNTHESIS BILATERAL W CAD Routine 08/04/2022 9:20 AM EDT Painful breasts from Last 3 Months or Most Recently Relevant to Health Maintenance Results * Mammo Diagnostic Digital Tomosynthesis Bilateral With CAD (08/04/2022 9:20 AM EDT) Anatomical Region Laterality Modality Breast Bilateral Mammography 08/04/2022 9:04 AM EDT Impressions 08/04/2022 9:06 AM EDT BI-RADS 1 negative exam RECOMMENDATION: Routine annual screening mammography in one year unless clinically indicated sooner. Clinical follow-up of intermittent nonfocal right breast pain. The standard false-negative rate of mammography is between 10% and 25%. Complex patterns or increased breast density will markedly elevate the false-negative rate of mammography. A results letter, in lay terminology, will be given to the patient at the conclusion of the exam. This report was finalized on 08/04/2022 9:[address] Ny Dill MD. Narrative 08/04/2022 9:06 AM EDT EXAMINATION:MAMMO DIAGNOSTIC DIGITAL TOMOSYNTHESIS BILATERAL W CAD- HISTORY: 62-year-old female with intermittent nonfocal breast pain in the right breast. No family history personal history of breast or ovarian cancer TECHNIQUE: Combination 2-D 3-D standard views of both breasts COMPARISON: Outside 2-D images dated 10/10/2018 and 07/10/2015 FINDINGS:There are scattered areas of fibroglandular density. No suspicious masses microcalcifications or areas of architectural distortion are identified. Zaki Winslow MD IMG MAMMOGRAPHY ORDERABLES Fin al Result from Last 3 Months or Most Recently Relevant to Health Maintenance Insurance [facility] Care Teams Oyster Harvester Relationship Specialty Start Date End Date Zaki Winslow MD [address] [facility] [address] [place] [id number] PCP - General Internal Medicine 07/28/22
== END 2025-02-14 23:59 | disposition home or self-care (01) ==
LOC: LAB.DROPOF 02-15 19:44
PROVIDERS: PCP Internal Medicine; Visit Provider Internal Medicine
DX: R10.31 Right lower quadrant pain (principal)
CPT/HCPCS: 85025

== ENCOUNTER 2025-02-27 15:00 | Outpatient (CLI) | payer MEDICARE, SELFPAY ==
[2025-02-27 15:03] LABS: Clostridium Difficile A/B, PCR Not Detected (NotDetected); Cyclospora Cayetanesis Not Detected (NotDetected); Salmonella, PCR Not Detected (NotDetected); Shiga-like toxin E coli Not Detected (NotDetected); Shigella Enterovasive E coli Not Detected (NotDetected); Vibrio, PCR Not Detected (NotDetected); Yersinia Entercolitica, PCR Not Detected (NotDetected)
--- OUTSIDE RECORDS SUMMARY | 2025-02-27 19:18 | XMS_ITS | Clinical Summary ---
[facility] Address [address] [place] [address] Care Team Providers Care Retail Warehouse Supervisor Name Role Phone Zaki Winslow MD Primary Care Provider [phone] Family History Medical History Relation Name Comments [...] Most Recently Relevant to Health Maintenance Insurance [facility] LBP Care Teams Retail Warehouse Supervisor Relationship Specialty Start Date End Date Zaki Winslow MD [address] [place] [facility] [address] [place] [id number] PCP - General Internal Medicine 07/28/22
== END 2025-02-27 23:59 | disposition home or self-care (01) ==
LOC: LAB 15:00
PROVIDERS: PCP Internal Medicine; Visit Provider Internal Medicine
DX: R10.31 Right lower quadrant pain (principal); R19.7 Diarrhea, unspecified
CPT/HCPCS: 87506

== ENCOUNTER 2025-03-09 06:57 | Outpatient (CLI) | payer MEDICARE, SELFPAY ==
--- OUTSIDE RECORDS SUMMARY | 2025-03-09 06:59 | XMS_ITS | Clinical Summary ---
[facility] Address [address] [place] [address] Care Team Providers Care Rail Car Repairman Name Role Phone Zaki Winslow MD Primary Care Provider [phone] Family History Medical History Relation Name Comments [...] Date Last Done Comments ANNUAL PHYSICAL 1960 DXA SCAN 1960 HEPATITIS C SCREENING 1960 TDAP/TD VACCINES (1 - Tdap) 06/15/1996 06/14/1996 COLOGUARD 02/26/2005 COLON CANCER SCREENING 5 YEA R SIGMOIDOSCOPY 02/26/2005 COLONOSCOPY 02/26/2005 COLORECTAL CANCER SCREENING 02/26/2005 CT COLONOGRAPHY 02/26/2005 FECAL OCCULT BLOOD TEST 02/26/2005 FIT Testing (1 year) 02/26/2005 ZOSTER VACCINE (1 of 2) 02/26/2010 Pneumococcal Vaccine 50+ (2 of 2 - PCV) 03/29/2019 03/29/2018 MAMMOGRAM 08/04/2024 08/04/2022, 07/12, 07/30/2022 INFLUENZA VACCINE 11/10/2024 12/18/2020, , 03/29/2018 COVID-19 Vaccine ( - season) 2024, 06/19/2020 Procedures Procedure Name Priority Date/Time Associated Diagnosis [...] Most Recently Relevant to Health Maintenance Insurance [facility] [place] [facility] Care Teams Rail Car Repairman Relationship Specialty Start Date End Date Zaki Winslow MD [address] [facility] [address] [place] [id number] PCP - General Internal Medicine 07/28/22
--- NOTE | 2025-03-09 07:00 | CT_ITS ---
FINAL REPORT TECHNIQUE: Thin section axial images were obtained from the lung bases to the pubic symphysis without IV contrast. Coronal reconstruction images were obtained from the axial data. Exam was performed using dose reduction technique. CLINICAL HISTORY: Right lower quadrant pain, nausea COMPARISON: 03/27/2018 FINDINGS: There is a 5 mm right middle lobe pulmonary nodule not included on the prior exam. Lung bases are otherwise clear. There are no obstructing renal or ureteral stones. There is no hydronephrosis or perinephric stranding. The gallbladder is absent. The liver is mildly enlarged. Otherwise, the remaining unenhanced solid abdominal organs are unremarkable. There is no evidence of small bowel obstruction. The appendix is normal. GI tract is without acute abnormality. The uterus is absent. There is no lymphadenopathy or ascites. No acute osseous abnormality is identified. IMPRESSION: No renal or ureteral stones. No hydronephrosis. No abnormality on this unenhanced exam. 5 mm right middle lobe pulmonary nodule. Follow-up after risk stratification per Fleischner criteria. Reviewed, Interpreted and Dictated by Nayeli Oshea MD Transcribed by Imelda Toure Authenticated and [facility]
== END 2025-03-09 23:59 | disposition home or self-care (01) ==
PROVIDERS: PCP Internal Medicine; Visit Provider Internal Medicine
DX: R91.1 Solitary pulmonary nodule (principal); R10.31 Right lower quadrant pain; R11.0 Nausea; R19.7 Diarrhea, unspecified
CPT/HCPCS: 74176

== ENCOUNTER 2025-03-21 06:45 | Outpatient (CLI) | payer MEDICARE, SELFPAY ==
--- OUTSIDE RECORDS SUMMARY | 2025-03-21 06:48 | XMS_ITS | Clinical Summary ---
[facility] Address [address] [place] [address] Care Team Providers Care Glassware Engraver Name Role Phone Zaki Winslow MD Primary Care Provider [phone] Family History Medical History Relation Name Comments [...] Most Recently Relevant to Health Maintenance Insurance [facility] Care Teams Glassware Engraver Relationship Specialty Start Date End Date Zaki Winslow MD [address] [facility] [address] [place] [id number] PCP - General Internal Medicine 07/28/22
--- NOTE | 2025-03-21 07:00 | CT_ITS ---
FINAL REPORT TECHNIQUE: Axial images were obtained through the chest without contrast. Multiplanar reconstructions in the sagittal and coronal planes were performed. This study was performed with techniques to keep radiation doses as low as reasonably achievable (ALARA). Individualized dose reduction techniques using automated exposure control or adjustment of mA and/or kV according to the patient's size were employed. CLINICAL HISTORY: Right middle lobe nodule, tobacco use disorder COMPARISON: None FINDINGS: CT CHEST WITH CONTRAST: There are multiple small mediastinal lymph nodes noted. There is a low-attenuation left thyroid mass measuring 11 mm in size. The heart size is normal. There is no pericardial or pleural effusion. There is mild peribronchial thickening in the upper and lower lobes bilaterally, as well as subtle ground glass opacities in the lung bases. There is a 4 mm right lower lobe nodule, best seen on image #158 of series 3. Limited images of the upper abdomen are unremarkable. No suspicious infiltrate or nodule identified. IMPRESSION: Mild parabronchial thickening in the upper and lower lobes bilaterally with ground glass opacities in the lung bases, that may represent chronic bronchitis. 4 mm nodule in the right lower lobe as described above, by Fleischner criteria 1 year follow-up CT is recommended. Reviewed, Interpreted and Dictated by William Echevarria MD Transcribed by Mabel Wetzel Authenticated and [facility]
== END 2025-03-21 23:59 | disposition home or self-care (01) ==
LOC: RAD 06:46
PROVIDERS: PCP Internal Medicine; Visit Provider Internal Medicine
DX: J44.9 Chronic obstructive pulmonary disease, unspecified (principal); R91.1 Solitary pulmonary nodule; R91.8 Other nonspecific abnormal finding of lung field; F17.200 Nicotine dependence, unspecified, uncomplicated
CPT/HCPCS: 71250

== ENCOUNTER 2025-03-26 12:52 | Outpatient (CLI) | payer MEDICARE, SELFPAY ==
--- NOTE | 2025-03-26 13:00 | US_ITS ---
FINAL REPORT TECHNIQUE: Real-time grayscale and color ultrasound of the thyroid was performed. CLINICAL HISTORY: Mass of left thyroid on CT scan of chest COMPARISON: CT 03/21/2025 FINDINGS: The thyroid gland measures 47 x 16 x 15 mm on the right and 38 x 21 x 19 mm on the left. The isthmus measures 1 mm. Nodules: There are multitude of bilateral thyroid nodules, some are solid and some are mixed cystic and solid. Dominant nodule in the right measures 8 mm, TR 4. Dominant nodule in the left measures 20 x 13 mm consistent with a TR 4 nodule. IMPRESSION: Multitude of bilateral thyroid nodules. Dominant 20 mm left TR 4 nodule, recommend FNA per TI-RADS criteria. Reviewed, Interpreted and Dictated by William Echevarria MD Transcribed by Imelda Toure Authenticated and [facility]
== END 2025-03-26 23:59 | disposition home or self-care (01) ==
LOC: RAD 12:53
PROVIDERS: PCP Internal Medicine; Visit Provider Internal Medicine
DX: E04.2 Nontoxic multinodular goiter (principal)
CPT/HCPCS: 76536

== ENCOUNTER 2025-04-06 08:37 | Outpatient (CLI) | payer MEDICARE, SELFPAY ==
--- OUTSIDE RECORDS SUMMARY | 2025-04-06 08:39 | XMS_ITS | Clinical Summary ---
[facility] Address [address] [place] [address] Care Team Providers Care Analytical Manager Name Role Phone Zaki Winslow MD Primary Care Provider [phone] Family History Medical History Relation Name Comments [...] Most Recently Relevant to Health Maintenance Insurance [facility] LBP Care Teams Analytical Manager Relationship Specialty Start Date End Date Zaki Winslow MD [address] [facility] [address] [place] [id number] PCP - General Internal Medicine 07/28/22
[2025-04-06 10:24] LABS: Free T4 (Free Thyroxine) 0.98 ng/dl (0.78-2.19)
[2025-04-06 10:39] LABS: Thyroid Stimulating Hormone 4.34 uIU/mL (0.465-4.68)
== END 2025-04-06 23:59 | disposition home or self-care (01) ==
LOC: LAB 08:38
PROVIDERS: PCP Internal Medicine; Visit Provider Student in an Organized Health Care Education/Training Program
DX: E04.1 Nontoxic single thyroid nodule (principal)
CPT/HCPCS: 36415; 84439; 84443